=== PATIENT | female | born 1965 | race Caucasian/White ===

== ENCOUNTER 2017-04-27 13:54 | Emergency (ER) | payer OTHER ==
--- NOTE | 2017-04-27 14:24 | EDM.PDOC ---
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 There is a child that was climbing on a cabinet she went to get him down, the child head butted her nose, she is bruising on the nasal bridge No loss of consciousness O other injury described No fever nausea vomiting diarrhea constipation chest pain shortness breath headache dizziness palpitation about a urine symptoms ] Review of systems: As per history of present illness and below otherwise all systems reviewed and negative. Past medical history: As per history of present illness and as reviewed below otherwise noncontributory. Surgical history: As per history of present illness and as reviewed below otherwise noncontributory. Social history: No reported history of drug or alcohol abuse. Family history: As per history of present illness and as reviewed below otherwise noncontributory. Physical exam: HEENT: Atraumatic, normocephalic, pupils reactive, negative for conjunctival pallor or scleral icterus, mucous membranes moist, throat clear, neck supple, nontender, trachea midline. Bruising over the nasal bridge as well as raccoon 9 is likely developing Lungs: Clear to auscultation, breath sounds equal bilaterally, chest nontender. Heart: S1S2, regular, negative for clicks, rubs, or JVD. Abdomen: Soft, nondistended, nontender. Negative for masses or hepatosplenomegaly. Negative for costovertebral tenderness. Pelvis: Stable nontender. Genitourinary: Deferred. Rectal: Deferred. Extremities: Atraumatic, negative for cords or calf pain. Neurovascular unremarkable. Neuro: Awake, alert, oriented. Cranial nerves II through XII unremarkable. Cerebellum unremarkable. Motor and sensory unremarkable throughout. Exam nonfocal. Diagnostics: []Nasal bone plain films Therapeutics: []Rest ice ibuprofen Tylenol No. 3 one to 2 tab by mouth every 6 when necessary #30 no refill Follow-up with plastic surgery 7-10 days Impression: []Nondisplaced nasal fracture Definitive disposition and diagnosis as appropriate pending reevaluation and review of above. nose Pain Score (Numeric/FACES): 6 - Related Data Allergies Allergy/AdvReac Type Severity Reaction Status Date / Time meperidine HCl [From Demerol] Allergy Anaphylactic Verified 04/27/17 14:07 Shock Home Meds: Home Meds Tolterodine Tartrate [Detrol LA] 1 tab PO DAILY 10/09/15 [History] Diclofenac Sodium [Voltaren] 50 mg PO TIDMEALS #30 tab.ec 04/27/17 [Rx] Past Medical History HEENT History: Reports: Impaired Vision Other HEENT History: wears glasses Cardiovascular History: Reports: None Respiratory History: Reports: None Gastrointestinal History: Reports: None Genitourinary History: Reports: Renal Calculus, Urinary Incontinence Other Genitourinary History: has passed kidney stones [employer]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, Other OB/BYN History: hysterectomy Neurological History: Reports: None Psychiatric History: Reports: None Endocrine/Metabolic History: Reports: Obesity/BMI 30+ Hematologic History: Reports: None Oncologic (Cancer) History: Reports: None Dermatologic History: Reports: None - Past Surgical History Head Surgeries/Procedures: Reports: None Cardiovascular Surgical History: Reports: None Respiratory Surgical History: Reports: None GI Surgical History: Reports: Bariatric Procedure, Cholecystectomy, Other (See Below) Female Surgical History: Reports: Breast Biopsy, Section, D&C, Salpingo-Oophorectomy, Other (See Below) Endocrine Surgical History: Reports: None Neurological Surgical History: Reports: None Musculoskeletal Surgical History: Reports: Arthroscopic Knee Oncologic Surgical History: Reports: None Dermatological Surgical History: Reports: None Social & Family History - Family History Cardiac: Reports: CAD, Hypertension Endocrine/Metabolic: Reports: Diabetes, Type I - Tobacco Use Smoking Status *Q: Never Smoker Years of Tobacco use: 25 Used Tobacco, but Quit: Yes Second Hand Smoke Exposure: Yes - Caffeine Use Caffeine Use: Reports: Coffee, Soda - Alcohol Use Days Per Week of Alcohol Use: 0 Number of Drinks Per Day: 0 Total Drinks Per Week: 0 - Recreational Drug Use Recreational Drug Use: No Drug Use in Last 12 Months: No ED ROS GENERAL - Review of Systems Review Of Systems: ROS reveals no pertinent complaints other than HPI. ED EXAM, GENERAL - Physical Exam Exam: See Below Course - Vital Signs Last Recorded V/S: Last Vital Signs Temp 35.9 C 04/27/17 14:04 Pulse 74 04/27/17 14:04 Resp 18 04/27/17 14:04 BP 158/88 H 04/27/17 14:04 Pulse Ox 97 04/27/17 14:04 - Orders/Labs/Meds Orders: Active Orders 24 hr Category Date Time Status Ibuprofen [Motrin] Med 04/27/17 15:06 Once 800 mg PO ONETIME ONE Departure - Departure Time of Disposition: 15:06 Disposition: Home, Self-Care 01 Condition: Good Clinical Impression: Nasal fracture - Discharge Information Prescriptions: Diclofenac Sodium [Voltaren] 50 mg PO TIDMEALS #30 tab.ec Referrals: Toño Pérez MD [Primary Care Provider] - Forms: ED Department Discharge Additional Instructions: Rest Ice 20 minute intervals 3 times daily as needed Tylenol No. 3 one to 2 tabs by mouth every 6 when necessary #30 no refill Follow-up with plastic surgery in 7-10 days for reexamination and continued management [facility] - Plastic Surgery [address], [address] [place] [address] The following information is given to patients seen in the emergency department who are being discharged to home. This information is to outline your options for follow-up care. We provide all patients seen in our emergency department with a follow-up referral. The need for follow-up, as well as the timing and circumstances, are variable depending upon the specifics of your emergency department visit. If you don't have a primary care physician on staff, we will provide you with a referral. We always advise you to contact your personal physician following an emergency department visit to inform them of the circumstance of the visit and for follow-up with them and/or the need for any referrals to a consulting specialist. The emergency department will also refer you to a specialist when appropriate. This referral assures that you have the opportunity for follow-up care with a specialist. All of these measure are taken in an effort to provide you with optimal care, which includes your follow-up. Under all circumstances we always encourage you to contact your private physician who remains a resource for coordinating your care. When calling for follow-up care, please make the office aware that this follow-up is from your recent emergency room visit. If for any reason you are refused follow-up, please contact the [facility] emergency department at and asked to speak to the emergency department charge nurse. - My Orders Last 24 Hours: My Active Orders 04/27/17 15:06 Ibuprofen [Motrin] 800 mg PO ONETIME ONE - Assessment/Plan Last 24 Hours: My Active Orders 04/27/17 15:06 Ibuprofen [Motrin] 800 mg PO ONETIME ONE
--- NOTE | 2017-04-27 15:02 | CR ---
EXAMINATION: Nasal bones HISTORY: Pain COMPARISON: None TECHNIQUE: PA and lateral views FINDINGS/IMPRESSION: There is a nondisplaced horizontal fracture across the nasal bones bilaterally, however this appears chronic. Otherwise the osseous structures and bone mineralization appear normal. The maxillary sinuses are patent.
[2017-04-27] MEDS ORDERED: Ibuprofen 800 MG Tab PO ONE (15:06)
[2017-04-27 15:21] VITALS: BP 142/77
== END 2017-04-27 15:22 | disposition home or self-care (01) ==
LOC: MW.ED 13:54
DX: S02.2XXA Fracture of nasal bones, initial encounter for closed fracture (principal); Z88.8 Allergy status to other drugs, medicaments and biological substances; X58.XXXA Exposure to other specified factors, initial encounter
CPT/HCPCS: 70160; 70160-26; 99283; 99284

== ENCOUNTER 2017-09-21 01:39 | Emergency (ER) | payer OTHER ==
[2017-09-21] MEDS ORDERED: Sodium Chloride 0.9% 1,000 ML IV ONE (01:54)
[2017-09-21] MEDS ORDERED: Ketorolac 30 MG/ML SDV IVPUSH ONE (01:54)
[2017-09-21] MEDS ORDERED: Ondansetron 4 MG/2 ML SDV IVPUSH ONE (01:54)
--- NOTE | 2017-09-21 01:56 | EDM.PDOC ---
ED HPI GENERAL MEDICAL PROBLEM - General Chief Complaint: Back Pain or Injury Stated Complaint: KIDNEY STONES, BACK PAIN, CHILLS Time Seen by Provider: 09/21/17 01:55 Source of Information: Reports: Patient - History of Present Illness INITIAL COMMENTS - FREE TEXT/NARRATIVE: HISTORY AND PHYSICAL: History of present illness: [Patient presents to emergency room with right-sided abdominal pain radiating to the back she rates 6 out of 10 but does not display any pain behaviors pain began at 8 PM tonight she presents as such denies fever nausea vomiting chills sweats no chest pain shortness breath headache dizziness palpitation no bowel or urine symptoms With treatment below of Toradol pain over the period of about an hour decreased to 0-1 out of 10 Patient has a history of overactive bladder on Detrol otherwise denies chronic illness disease past surgeries include cholecystectomy and total abdominal hysterectomy ] Review of systems: As per history of present illness and below otherwise all systems reviewed and negative. Past medical history: As per history of present illness and as reviewed below otherwise noncontributory. Surgical history: As per history of present illness and as reviewed below otherwise noncontributory. Social history: No reported history of drug or alcohol abuse. Family history: As per history of present illness and as reviewed below otherwise noncontributory. Physical exam: HEENT: Atraumatic, normocephalic, pupils reactive, negative for conjunctival pallor or scleral icterus, mucous membranes moist, throat clear, neck supple, nontender, trachea midline. Lungs: Clear to auscultation, breath sounds equal bilaterally, chest nontender. Heart: S1S2, regular, negative for clicks, rubs, or JVD. Abdomen: Soft, nondistended, nontender. Negative for masses or hepatosplenomegaly. Negative for costovertebral tenderness. Pelvis: Stable nontender. Genitourinary: Deferred. Rectal: Deferred. Extremities: Atraumatic, negative for cords or calf pain. Neurovascular unremarkable. Neuro: Awake, alert, oriented. Cranial nerves II through XII unremarkable. Cerebellum unremarkable. Motor and sensory unremarkable throughout. Exam nonfocal. Diagnostics: [CBC CMP UA troponin lipase Blood cultures urine culture ] CT abdomen pelvis with and without contrast Therapeutics: [ liter normal saline bolus Zofran 8 mg IV Toradol 30 mg IV Solu-Medrol 125 mg IV Flomax 0.4 mg by mouth] Levaquin 750 mg IV Filter in screening equipment Patient discussed with Dr. Patel urology provisioning specialist at [facility], discussed due to the positive nitrites and 1+ bacteria on UA, 0-3 white blood cells which does not correlate with UTI patient denies any urine symptoms and pain is resolved she has remained afebrile and hemodynamically stable .his recommendation is to 10 units with the antibiotics and have her follow-up through his clinic she can call tomorrow to redirect this plan is based on the firm understanding that the patient will return to ER if fever or temperature over 100.4 should develop . Check of stress to the patient Levaquin 500 mg by mouth daily #10 no refill Flomax 0.4 by mouth daily #6 no refill Zofran Hydrocodone filter equipment provided for urine screening to catch stone and return for pathology Patient is offered observation admission and declined/refused Impression: [ 4 mm right ureteral stone nitrite positive, 1+ bacteria, 0-3 white blood cells patient afebrile and hemodynamically stable ] Definitive disposition and diagnosis as appropriate pending reevaluation and review of above. low back Pain Score (Numeric/FACES): 7 - Related Data Allergies Allergy/AdvReac Type Severity Reaction Status Date / Time meperidine HCl [From Demerol] Allergy Anaphylactic Verified 09/21/17 01:53 Shock Home Meds: Home Meds Tolterodine Tartrate [Detrol LA] 1 tab PO DAILY 10/09/15 [History] Past Medical History HEENT History: Reports: Impaired Vision Other HEENT History: wears glasses Cardiovascular History: Reports: None Respiratory History: Reports: None Gastrointestinal History: Reports: None Genitourinary History: Reports: Renal Calculus, Urinary Incontinence Other Genitourinary History: has passed kidney stones 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, Other OB/BYN History: hysterectomy Neurological History: Reports: None Psychiatric History: Reports: None Endocrine/Metabolic History: Reports: Obesity/BMI 30+ Hematologic History: Reports: None Oncologic (Cancer) History: Reports: None Dermatologic History: Reports: None - Past Surgical History Head Surgeries/Procedures: Reports: None Cardiovascular Surgical History: Reports: None Respiratory Surgical History: Reports: None GI Surgical History: Reports: Bariatric Procedure, Cholecystectomy, Other (See Below) Female Surgical History: Reports: Breast Biopsy, Section, D&C, Salpingo-Oophorectomy, Other (See Below) Endocrine Surgical History: Reports: None Neurological Surgical History: Reports: None Musculoskeletal Surgical History: Reports: Arthroscopic Knee Oncologic Surgical History: Reports: None Dermatological Surgical History: Reports: None Social & Family History - Family History Cardiac: Reports: CAD, Hypertension Endocrine/Metabolic: Reports: Diabetes, Type I - Tobacco Use Smoking Status *Q: Never Smoker Years of Tobacco use: 25 Used Tobacco, but Quit: Yes Second Hand Smoke Exposure: Yes - Caffeine Use Caffeine Use: Reports: Coffee, Soda - Alcohol Use Days Per Week of Alcohol Use: 0 Number of Drinks Per Day: 0 Total Drinks Per Week: 0 - Recreational Drug Use Recreational Drug Use: No Drug Use in Last 12 Months: No ED ROS GENERAL - Review of Systems Review Of Systems: ROS reveals no pertinent complaints other than HPI. ED EXAM, GENERAL - Physical Exam Exam: See Below Course - Vital Signs Last Recorded V/S: Last Vital Signs Temp 98 F 09/21/17 03:12 Pulse 60 09/21/17 03:12 Resp 18 09/21/17 03:12 BP 117/59 L 09/21/17 03:12 Pulse Ox 96 09/21/17 03:12 - Orders/Labs/Meds Orders: Active Orders 24 hr Category Date Time Status Abdomen Pelvis w wo Cont [CT] Stat Exams 09/21/17 02:11 Taken CULTURE BLOOD [BC] Stat Lab 09/21/17 02:04 Received CULTURE BLOOD [BC] Stat Lab 09/21/17 02:15 Received CULTURE URINE [RM] Stat Lab 09/21/17 01:55 Ordered UA W/MICROSCOPIC [URIN] Stat Lab 09/21/17 01:55 Ordered Levofloxacin/Dextrose 5%-Water [Levaquin in D5W 750 MG/ Med 09/21/17 03:22 Ordered 150 ML] 750 mg Premix Bag 1 bag IV ONETIME Sodium Chloride 0.9% [Normal Saline] 1,000 ml Med 09/21/17 03:30 Ordered IV STAT Blood Culture x2 Reflex Set [OM.PC] Stat Oth 09/21/17 01:54 Ordered Medication Orders Sodium Chloride (Normal Saline) 1,000 mls @ 125 mls/hr IV STAT SENTHIL Last Admin: 09/21/17 03:29 Dose: 125 mls/hr Levofloxacin/Dextrose 750 mg/ (Premix) 150 mls @ 100 mls/hr IV ONETIME ONE Stop: 09/21/17 04:51 Last Admin: 09/21/17 03:33 Dose: 100 mls/hr Labs: Laboratory Tests 09/21/17 09/21/17 09/21/17 Range/Units 01:55 02:04 02:04 WBC 8.70 (4.0-11.0) K/uL RBC 5.00 (4.30-5.90) M/uL Hgb 13.5 (12.0-16.0) g/dL Hct 40.7 (36.0-46.0) % MCV 81.4 (80.0-98.0) fL MCH 27.0 (27.0-32.0) pg MCHC 33.2 (31.0-37.0) g/dL RDW Std Deviation 46.0 (28.0-62.0) fl RDW Coeff of Akin 16 H (11.0-15.0) % Plt Count 230 (150-400) K/uL MPV 9.60 (7.40-12.00) fL Neut % (Auto) 66.6 (48.0-80.0) % Lymph % (Auto) 23.2 (16.0-40.0) % Stevens % (Auto) 8.5 (0.0-15.0) % Eos % (Auto) 1.5 (0.0-7.0) % Baso % (Auto) 0.2 (0.0-1.5) % Neut # (Auto) 5.8 H (1.4-5.7) K/uL Lymph # (Auto) 2.0 (0.6-2.4) K/uL Stevens # (Auto) 0.7 (0.0-0.8) K/uL Eos # (Auto) 0.1 (0.0-0.7) K/uL Baso # (Auto) 0.0 (0.0-0.1) K/uL Nucleated RBC % 0.0 /100WBC Nucleated RBCs # 0 K/uL Sodium 141 (136-145) mmol/L Potassium 4.4 (3.5-5.1) mmol/L Chloride 105 (98-107) mmol/L Carbon Dioxide 26.7 (21.0-32.0) mmol/L BUN 24 H (7.0-18.0) mg/dL Creatinine 0.8 (0.6-1.0) mg/dL Est Cr Clr Drug Dosing 72.34 mL/min Estimated GFR (MDRD) > 60.0 ml/min Glucose 121 H (74-106) mg/dL Calcium 9.2 (8.5-10.1) mg/dL Total Bilirubin 0.2 (0.2-1.0) mg/dL AST 14 L (15-37) IU/L ALT 22 (14-63) IU/L Alkaline Phosphatase 104 (46-116) U/L Troponin I < 0.050 (0.000-0.056) ng/mL Total Protein 7.3 (6.4-8.2) g/dL Albumin 3.9 (3.4-5.0) g/dL Globulin 3.4 (2.0-3.5) g/dL Albumin/Globulin Ratio 1.1 L (1.3-2.8) Lipase 190 (73-393) U/L Urine Color YELLOW Urine Appearance CLEAR Urine pH 5.0 (5.0-8.0) Ur Specific [place] 1.020 (1.001-1.035) Urine Protein NEGATIVE (NEGATIVE) mg/dL Urine Glucose (UA) NEGATIVE (NEGATIVE) mg/dL Urine Ketones NEGATIVE (NEGATIVE) mg/dL Urine Occult Blood LARGE H (NEGATIVE) Urine Nitrite POSITIVE H (NEGATIVE) Urine Bilirubin NEGATIVE (NEGATIVE) Urine Urobilinogen 0.2 (<2.0) EU/dL Ur Leukocyte Esterase NEGATIVE (NEGATIVE) Urine RBC 27-29 (0-2/HPF) Urine WBC 0-3 (0-5/HPF) Ur Epithelial Cells OCCASIONAL (NONE-FEW) Amorphous Sediment LIGHT (NEGATIVE) Urine Bacteria 1+ H (NEGATIVE) Urine Mucus LIGHT (NONE-MOD) Meds: Medications Generic Name Dose Route Start Last Admin Trade Name Freq PRN Reason Stop Dose Admin Sodium Chloride 1,000 mls @ 125 mls/hr 09/21/17 03:30 09/21/17 03:29 Normal Saline IV 125 mls/hr STAT SENTHIL Administration Levofloxacin/Dextrose 750 mg/ 150 mls @ 100 mls/hr 09/21/17 03:22 09/21/17 03 :33 Premix IV 09/21/17 04:51 100 mls/hr ONETIME ONE Administration Discontinued Medications Generic Name Dose Route Start Last Admin Trade Name Driss PRN Reason Stop Dose Admin Sodium Chloride 1,000 mls @ 999 mls/hr 09/21/17 01:54 09/21/17 02:05 Normal Saline IV 09/21/17 02:54 999 mls/hr STAT ONE Administration Iopamidol 100 ml 09/21/17 02:53 09/21/17 02:54 Isovue-370 (76%) IVPUSH 09/21/17 02:54 100 ml ONETIME STA Administration Ketorolac Tromethamine 30 mg 09/21/17 01:54 09/21/17 02:10 Toradol IVPUSH 09/21/17 01:55 30 mg ONETIME ONE Administration Methylprednisolone Sodium Succinate 125 mg 09/21/17 03:21 09/21/17 03:30 Solu-Medrol IVPUSH 09/21/17 03:22 125 mg ONETIME ONE Administration Ondansetron HCl 8 mg 09/21/17 01:54 09/21/17 02:09 Zofran IVPUSH 09/21/17 01:55 8 mg ONETIME ONE Administration Tamsulosin HCl 0.4 mg 09/21/17 03:20 09/21/17 03:30 Flomax PO 09/21/17 03:21 0.4 mg ONETIME ONE Administration Departure - Departure Time of Disposition: 04:09 Disposition: Home, Self-Care 01 Condition: Good Clinical Impression: Ureteral stone - Discharge Information Referrals: Toño Pérez MD [Primary Care Provider] - Forms: ED Department Discharge Additional Instructions: Medication as prescribed Return if symptoms persist or worsen or new concerning symptoms develop such as fever nausea vomiting chills sweats temperature over 100.4 with prompt immediate return to emergency room Filter screen and collection equipment to retrieve stone for pathology and culture Have discussed your case with Dr. Oconnor, urologist provisioning specialist at [facility], he would like to hear from you tomorrow to set up further treatment plan for you after updates i.e. whether stone passes or not. Again fever or temperature over 100.4 with always prompt you to return to the emergency room Currently urine cultures and blood cultures are pending Dr. Suarez office can be contacted to [facility] in mind that at which is the switchboard operators number asked to be transferred to his clinic in the urology department. The following information is given to patients seen in the emergency department who are being discharged to home. This information is to outline your options for follow-up care. We provide all patients seen in our emergency department with a follow-up referral. The need for follow-up, as well as the timing and circumstances, are variable depending upon the specifics of your emergency department visit. If you don't have a primary care physician on staff, we will provide you with a referral. We always advise you to contact your personal physician following an emergency department visit to inform them of the circumstance of the visit and for follow-up with them and/or the need for any referrals to a consulting specialist. The emergency department will also refer you to a specialist when appropriate. This referral assures that you have the opportunity for follow-up care with a specialist. All of these measure are taken in an effort to provide you with optimal care, which includes your follow-up. Under all circumstances we always encourage you to contact your private physician who remains a resource for coordinating your care. When calling for follow-up care, please make the office aware that this follow-up is from your recent emergency room visit. If for any reason you are refused follow-up, please contact the [facility] emergency department at and asked to speak to the emergency department charge nurse. - My Orders Last 24 Hours: My Active Orders 09/21/17 01:54 Blood Culture x2 Reflex Set [OM.PC] Stat 09/21/17 01:55 CULTURE URINE [RM] Stat UA W/MICROSCOPIC [URIN] Stat 09/21/17 02:04 CULTURE BLOOD [BC] Stat 09/21/17 02:11 Abdomen Pelvis w wo Cont [CT] Stat 09/21/17 02:15 CULTURE BLOOD [BC] Stat 09/21/17 03:22 Levofloxacin/Dextrose 5%-Water [Levaquin in D5W 750 MG/150 ML] 750 mg Premix Bag 1 bag IV ONETIME 09/21/17 03:30 Sodium Chloride 0.9% [Normal Saline] 1,000 ml IV STAT - Assessment/Plan Last 24 Hours: My Active Orders 09/21/17 01:54 Blood Culture x2 Reflex Set [OM.PC] Stat 09/21/17 01:55 CULTURE URINE [RM] Stat UA W/MICROSCOPIC [URIN] Stat 09/21/17 02:04 CULTURE BLOOD [BC] Stat 09/21/17 02:11 Abdomen Pelvis w wo Cont [CT] Stat 09/21/17 02:15 CULTURE BLOOD [BC] Stat 09/21/17 03:22 Levofloxacin/Dextrose 5%-Water [Levaquin in D5W 750 MG/150 ML] 750 mg Premix Bag 1 bag IV ONETIME 09/21/17 03:30 Sodium Chloride 0.9% [Normal Saline] 1,000 ml IV STAT
[2017-09-21 02:47] LABS: CHLORIDE,CL 105 mmol/L (98-107); SODIUM,NA 141 mmol/L (136-145)
[2017-09-21] MEDS ORDERED: Iopamidol 755 Mg/ML 100 ML Bottle IVPUSH STA (02:53)
[2017-09-21] MEDS ORDERED: Tamsulosin 0.4 MG Cap.ER PO ONE (03:20)
[2017-09-21] MEDS ORDERED: methylPREDNISolone Sodium Succinate 125 MG/2 ML SDV IVPUSH ONE (03:21)
[2017-09-21] MEDS ORDERED: Levofloxacin/Dextrose 5%-Water 750 MG in Premix Bag 1 BAG IV ONE (03:22)
[2017-09-21] MEDS ORDERED: Sodium Chloride 0.9% 1,000 ML IV SCH (03:30)
[2017-09-21 05:33] VITALS: BP 120/75
--- NOTE | 2017-09-21 11:26 | CT ---
EXAM DATE: 09/21/17 PATIENT'S AGE: 52 Patient: ANNIE SAUNDERS Facility: [facility] [place], [place] Site . Site : [id number] Study: CT Abdomen/Pelvis W/ and W/O Cont [id number]/[id number] 2:57:51 AM Ordering Physician: Michelle Phelps Final Report: INDICATION: RLQ pain TECHNIQUE: CT abdomen and pelvis acquired without and with IV contrast. COMPARISON: None FINDINGS: Lower chest: Unremarkable. Liver: 2.8 x 2.9 cm macroscopic fat containing lesion within the left hepatic lobe consistent with a hepatic angiomyolipoma. Additional innumerable ill- defined lesions throughout the liver with puddling of contrast along the periphery which fill and on the delayed sequences. Hepatomegaly. Spleen: Nonspecific splenomegaly measuring up to 14 cm. Pancreas: Unremarkable. Gallbladder and bile ducts: Cholecystectomy Kidneys: 4 mm calculus within the mid right ureter with associated right-sided hydroureter/hydronephrosis. Additional bilateral nonobstructive intrarenal calculi. Adrenal glands: Unremarkable. GI tract: Gastric bypass changes. Appendix is normal. Vascular structures: Negative. No sign of aneurysm. Lymph nodes: Unremarkable. Miscellaneous: Fat containing ventral abdominal wall hernia. No free air or significant free fluid. Pelvic Organs: Hysterectomy Bones: Degenerative changes. IMPRESSION: 1. 4 mm calculus within the mid right ureter with associated right-sided hydroureter/hydronephrosis. Additional bilateral nonobstructive intrarenal calculi. 2. Multiple hepatic lesions with characteristics of hemangiomas. Additional angiomyolipoma. 3. Fat containing ventral abdominal wall hernia. 4. Nonspecific hepatosplenomegaly. Dictated by Otf Benito MD @ 09/21/2017 3:11:44 AM Please note that all CT scans at this facility use dose modulation, iterative reconstruction, and/or weight-based dosing when appropriate to reduce radiation dose to as low as reasonably achievable. Dictated by: Otf Benito MD @ 09/21/2017 03:11:58 (Electronic Signature) Report Signed by Proxy. [facility]
== END 2017-09-21 05:30 | disposition home or self-care (01) ==
LOC: MW.ED 01:39
DX: N13.2 Hydronephrosis with renal and ureteral calculous obstruction (principal); Z88.5 Allergy status to narcotic agent; Z79.899 Other long term (current) drug therapy; Z87.891 Personal history of nicotine dependence
CPT/HCPCS: 36415; 74178; 80053; 81001; 83690; 84484; 85025; 87040; 87086; 96361; 96365; 96366; 96375; 99284; A9270; J1885; J1956; J2405; J2930; J7040; Q9967; 87088; 87186

== ENCOUNTER 2019-02-08 06:58 | Emergency (ER) | payer OTHER ==
[2019-02-08] MEDS ORDERED: Sodium Chloride 0.9% 1,000 ML IV ONE (07:25)
[2019-02-08] MEDS ORDERED: Ketorolac 30 MG/ML SDV IVPUSH ONE (07:25)
--- NOTE | 2019-02-08 07:28 | EDM.PDOC ---
ED HPI GENERAL MEDICAL PROBLEM - General Chief Complaint: General Stated Complaint: ABDOMINAL PAIN Time Seen by Provider: 02/08/19 07:15 - History of Present Illness INITIAL COMMENTS - FREE TEXT/NARRATIVE: HISTORY AND PHYSICAL: History of present illness: Patient is 53-year-old white female who presents with a concern of right-sided flank/abdominal pain fever generalized weakness with history of urolithiasis states she's had a temperature 102 at home denies nausea vomiting has had prior cholecystectomy hysterectomy. Review of systems: As per history of present illness and below otherwise all systems reviewed and negative. Past medical history: As per history of present illness and as reviewed below otherwise noncontributory. Surgical history: As per history of present illness and as reviewed below otherwise noncontributory. Social history: No reported history of drug or alcohol abuse. Family history: As per history of present illness and as reviewed below otherwise noncontributory. Physical exam: HEENT: Atraumatic, normocephalic, pupils reactive, negative for conjunctival pallor or scleral icterus, mucous membranes dry, throat clear, neck supple, nontender, trachea midline. Lungs: Clear to auscultation, breath sounds equal bilaterally, chest nontender. Heart: S1S2, regular, negative for clicks, rubs, or JVD. Abdomen: Soft, nondistended, right-sided nonlocalized no rebound no guarding. Negative for masses or hepatosplenomegaly. Mild right-sided costovertebral tenderness. Pelvis: Stable nontender. Genitourinary: Deferred. Rectal: Deferred. Extremities: Atraumatic, negative for cords or calf pain. Neurovascular unremarkable. Neuro: Awake, alert, oriented. Cranial nerves II through XII unremarkable. Cerebellum unremarkable. Motor and sensory unremarkable throughout. Exam nonfocal. Diagnostics: CBC CMP blood culture [address] abdomen and pelvis chest x-ray UA Therapeutics: Saline 1 L bolus Toradol 30 mg IV Impression: #1 right sided flank/abdominal pain #2 history of fever #3 medical screening exam Definitive disposition and diagnosis as appropriate pending reevaluation and review of above. Headache Pain Score (Numeric/FACES): 7 Lower Back Pain Score (Numeric/FACES): 6 - Related Data Allergies Allergy/AdvReac Type Severity Reaction Status Date / Time meperidine HCl [From Demerol] Allergy Anaphylactic Verified 02/08/19 07:07 Shock Home Meds: Home Meds Tolterodine Tartrate [Detrol LA] 1 tab PO DAILY 10/09/15 [History] Past Medical History HEENT History: Reports: Impaired Vision Other HEENT History: wears glasses Cardiovascular History: Reports: None Respiratory History: Reports: None Gastrointestinal History: Reports: None Genitourinary History: Reports: Renal Calculus, Urinary Incontinence Other Genitourinary History: has passed kidney stones 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: Reports: 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, Other 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: hysterectomy Neurological History: Reports: None Psychiatric History: Reports: None Endocrine/Metabolic History: Reports: Obesity/BMI 30+ Hematologic History: Reports: None Oncologic (Cancer) History: Reports: None Dermatologic History: Reports: None - Past Surgical History Head Surgeries/Procedures: Reports: None Cardiovascular Surgical History: Reports: None Respiratory Surgical History: Reports: None GI Surgical History: Reports: Bariatric Procedure, Cholecystectomy, Other (See Below) Female Surgical History: Reports: Breast Biopsy, Section, D&C, Hysterectomy, Salpingo-Oophorectomy, Other (See Below) Endocrine Surgical History: Reports: None Neurological Surgical History: Reports: None Musculoskeletal Surgical History: Reports: Arthroscopic Knee Oncologic Surgical History: Reports: None Dermatological Surgical History: Reports: None Social & Family History - Family History Family Medical History: Noncontributory Cardiac: Reports: CAD, Hypertension Endocrine/Metabolic: Reports: Diabetes, Type I - Tobacco Use Smoking Status *Q: Never Smoker - Caffeine Use Caffeine Use: Reports: Coffee, Soda - Recreational Drug Use Recreational Drug Use: No ED ROS GENERAL - Review of Systems Review Of Systems: ROS reveals no pertinent complaints other than HPI. ED EXAM, GENERAL - Physical Exam Exam: See Below (See dictation) Course - Vital Signs Text/Narrative:: I discussed case with urology Dr. Hayes including CT results UA. Patient was given Rocephin 1 g IV she did receive Toradol, Dilaudid and Zofran in the emergency room. I discussed with patient plan as per urology for follow-up in the office today at 1 PM to schedule definitive treatment patient agrees and understands I discussed concerns with regard to clinical statement including obstructive uropathy with urinary tract infection and associated risks patient understands and will return immediately for persistent or worsening pain nausea vomiting fever chills or any other complaints as discussed as well as agrees to the close follow-up and planning as per urology. Last Recorded V/S: Last Vital Signs Temp 36.2 C 02/08/19 07:05 Pulse 97 02/08/19 07:05 Resp 18 02/08/19 07:05 BP 134/84 02/08/19 07:05 Pulse Ox 96 02/08/19 07:05 - Orders/Labs/Meds Orders: Active Orders 24 hr Category Date Time Status CULTURE BLOOD [BC] Stat Lab 02/08/19 07:34 Received CULTURE BLOOD [BC] Stat Lab 02/08/19 07:44 Received CULTURE URINE [RM] Stat Lab 02/08/19 08:18 Received cefTRIAXone [Rocephin] 1 gm Med 02/08/19 09:12 Active Sodium Chloride 0.9% [Normal Saline] 50 ml IV ONETIME Blood Culture x2 Reflex Set [OM.PC] Stat Oth 02/08/19 07:25 Ordered Medication Orders Ceftriaxone Sodium 1 gm/ (Sodium Chloride) 50 mls @ 100 mls/hr IV ONETIME ONE Stop: 02/08/19 09:41 Labs: Laboratory Tests 02/08/19 02/08/19 02/08/19 Range/Units 07:34 07:34 07:34 WBC 5.45 (4.0-11.0) K/uL RBC 4.73 (4.30-5.90) M/uL Hgb 12.8 (12.0-16.0) g/dL Hct 39.4 (36.0-46.0) % MCV 83.3 (80.0-98.0) fL MCH 27.1 (27.0-32.0) pg MCHC 32.5 (31.0-37.0) g/dL RDW Std Deviation 43.1 (28.0-62.0) fl RDW Coeff of Akin 14 (11.0-15.0) % Plt Count 170 (150-400) K/uL MPV 9.50 (7.40-12.00) fL Neut % (Auto) 71.6 (48.0-80.0) % Lymph % (Auto) 19.4 (16.0-40.0) % [place]oul[place] % (Auto) 8.6 (0.0-15.0) % Eos % (Auto) 0.2 (0.0-7.0) % Baso % (Auto) 0.2 (0.0-1.5) % Neut # (Auto) 3.9 (1.4-5.7) K/uL Lymph # (Auto) 1.1 (0.6-2.4) K/uL [place] # (Auto) 0.5 (0.0-0.8) K/uL Eos # (Auto) 0.0 (0.0-0.7) K/uL Baso # (Auto) 0.0 (0.0-0.1) K/uL Nucleated RBC % 0.0 /100WBC Nucleated RBCs # 0 K/uL INR 1.01 Sodium 139 (136-145) mmol/L Potassium 4.1 (3.5-5.1) mmol/L Chloride 104 (98-107) mmol/L Carbon Dioxide 25.3 (21.0-32.0) mmol/L BUN 11 (7.0-18.0) mg/dL Creatinine 0.8 (0.6-1.0) mg/dL Est Cr Clr Drug Dosing TNP Estimated GFR (MDRD) > 60.0 ml/min Glucose 112 H (74-106) mg/dL Calcium 9.1 (8.5-10.1) mg/dL Total Bilirubin 0.5 (0.2-1.0) mg/dL AST 12 L (15-37) IU/L ALT 18 (14-63) IU/L Alkaline Phosphatase 110 (46-116) U/L Total Protein 6.5 (6.4-8.2) g/dL Albumin 3.4 (3.4-5.0) g/dL Globulin 3.1 (2.6-4.0) g/dL Albumin/Globulin Ratio 1.1 (0.9-1.6) Lipase 121 (73-393) U/L Urine Color Urine Appearance Urine pH (5.0-8.0) Ur Specific Freedom (1.001-1.035) Urine Protein (NEGATIVE) mg/dL Urine Glucose (UA) (NEGATIVE) mg/dL Urine Ketones (NEGATIVE) mg/dL Urine Occult Blood (NEGATIVE) Urine Nitrite (NEGATIVE) Urine Bilirubin (NEGATIVE) Urine Urobilinogen (<2.0) EU/dL Ur Leukocyte Esterase (NEGATIVE) Urine RBC (0-2/HPF) Urine WBC (0-5/HPF) Ur Epithelial Cells (NONE-FEW) Urine Bacteria (NEGATIVE) 02/08/19 Range/Units 08:18 WBC (4.0-11.0) K/uL RBC (4.30-5.90) M/uL Hgb (12.0-16.0) g/dL Hct (36.0-46.0) % MCV (80.0-98.0) fL MCH (27.0-32.0) pg MCHC (31.0-37.0) g/dL RDW Std Deviation (28.0-62.0) fl RDW Coeff of Akin (11.0-15.0) % Plt Count (150-400) K/uL MPV (7.40-12.00) fL Neut % (Auto) (48.0-80.0) % Lymph % (Auto) (16.0-40.0) % [place]oul[place] % (Auto) (0.0-15.0) % Eos % (Auto) (0.0-7.0) % Baso % (Auto) (0.0-1.5) % Neut # (Auto) (1.4-5.7) K/uL Lymph # (Auto) (0.6-2.4) K/uL [place] # (Auto) (0.0-0.8) K/uL Eos # (Auto) (0.0-0.7) K/uL Baso # (Auto) (0.0-0.1) K/uL Nucleated RBC % /100WBC Nucleated RBCs # K/uL INR Sodium (136-145) mmol/L Potassium (3.5-5.1) mmol/L Chloride (98-107) mmol/L Carbon Dioxide (21.0-32.0) mmol/L BUN (7.0-18.0) mg/dL Creatinine (0.6-1.0) mg/dL Est Cr Clr Drug Dosing Estimated GFR (MDRD) ml/min Glucose (74-106) mg/dL Calcium (8.5-10.1) mg/dL Total Bilirubin (0.2-1.0) mg/dL AST (15-37) IU/L ALT (14-63) IU/L Alkaline Phosphatase (46-116) U/L Total Protein (6.4-8.2) g/dL Albumin (3.4-5.0) g/dL Globulin (2.6-4.0) g/dL Albumin/Globulin Ratio (0.9-1.6) Lipase (73-393) U/L Urine Color YELLOW Urine Appearance CLEAR Urine pH 6.0 (5.0-8.0) Ur Specific Freedom 1.020 (1.001-1.035) Urine Protein NEGATIVE (NEGATIVE) mg/dL Urine Glucose (UA) NEGATIVE (NEGATIVE) mg/dL Urine Ketones NEGATIVE (NEGATIVE) mg/dL Urine Occult Blood SMALL H (NEGATIVE) Urine Nitrite NEGATIVE (NEGATIVE) Urine Bilirubin NEGATIVE (NEGATIVE) Urine Urobilinogen 0.2 (<2.0) EU/dL Ur Leukocyte Esterase SMALL H (NEGATIVE) Urine RBC 3-5 (0-2/HPF) Urine WBC 10-15 (0-5/HPF) Ur Epithelial Cells OCCASIONAL (NONE-FEW) Urine Bacteria 2+ H (NEGATIVE) Meds: Medications Generic Name Dose Route Start Last Admin Trade Name Freq PRN Reason Stop Dose Admin Ceftriaxone Sodium 1 gm/ 50 mls @ 100 mls/hr 02/08/19 09:12 Sodium Chloride IV 02/08/19 09:41 ONETIME ONE Discontinued Medications Generic Name Dose Route Start Last Admin Trade Name Freq PRN Reason Stop Dose Admin Hydromorphone HCl 1 mg 02/08/19 09:13 Dilaudid IVPUSH 02/08/19 09:14 ONETIME ONE Sodium Chloride 1,000 mls @ 999 mls/hr 02/08/19 07:25 02/08/19 07:36 Normal Saline IV 02/08/19 08:25 999 mls/hr STAT ONE Administration Ketorolac Tromethamine 30 mg 02/08/19 07:25 02/08/19 07:36 Toradol IVPUSH 02/08/19 07:26 30 mg ONETIME ONE Administration Departure - Departure Time of Disposition: 09:17 Disposition: Home, Self-Care 01 Condition: Good Clinical Impression: Urolithiasis, UTI (urinary tract infection) - Discharge Information Referrals: Toño Pérez MD [Primary Care Provider] - Forms: ED Department Discharge Additional Instructions: The following information is given to patients seen in the emergency department who are being discharged to home. This information is to outline your options for follow-up care. We provide all patients seen in our emergency department with a follow-up referral. The need for follow-up, as well as the timing and circumstances, are variable depending upon the specifics of your emergency department visit. If you don't have a primary care physician on staff, we will provide you with a referral. We always advise you to contact your personal physician following an emergency department visit to inform them of the circumstance of the visit and for follow-up with them and/or the need for any referrals to a consulting specialist. The emergency department will also refer you to a specialist when appropriate. This referral assures that you have the opportunity for followup care with a specialist. All of these measure are taken in an effort to provide you with optimal care, which includes your followup. Under all circumstances we always encourage you to contact your private physician who remains a resource for coordinating your care. When calling for followup care, please make the office aware that this follow-up is from your recent emergency room visit. If for any reason you are refused follow-up, please contact the [facility] emergency department at and asked to speak to the emergency department charge nurse. [facility] - Urology [address] [place] [address] Hydrocodone as prescribed Flomax as prescribed follow-up urology today at 1:00 as discussed return as needed as discussed - My Orders Last 24 Hours: My Active Orders 02/08/19 07:25 Blood Culture x2 Reflex Set [OM.PC] Stat 02/08/19 07:34 CULTURE BLOOD [BC] Stat 02/08/19 07:44 CULTURE BLOOD [BC] Stat 02/08/19 08:18 CULTURE URINE [RM] Stat 02/08/19 09:12 cefTRIAXone [Rocephin] 1 gm Sodium Chloride 0.9% [Normal Saline] 50 ml IV ONETIME - Assessment/Plan Last 24 Hours: My Active Orders 02/08/19 07:25 Blood Culture x2 Reflex Set [OM.PC] Stat 02/08/19 07:34 CULTURE BLOOD [BC] Stat 02/08/19 07:44 CULTURE BLOOD [BC] Stat 02/08/19 08:18 CULTURE URINE [RM] Stat 02/08/19 09:12 cefTRIAXone [Rocephin] 1 gm Sodium Chloride 0.9% [Normal Saline] 50 ml IV ONETIME
[2019-02-08 08:19] LABS: CHLORIDE,CL 104 mmol/L (98-107); SODIUM,NA 139 mmol/L (136-145)
--- NOTE | 2019-02-08 08:21 | CR ---
INDICATION: Pain, SOB and fever TECHNIQUE: AP image of the chest. COMPARISON: Today`s abdomen/pelvis CT. FINDINGS: Lungs and pleural spaces clear. Heart, mediastinum and pulmonary vessels normal. No significant osseous abnormality. IMPRESSION: Negative chest. Dictated by Jarrod Haynes MD @ Feb 08 2019 8:17AM Signed by Dr. Jarrod Haynes @ Feb 08 2019 8:19AM
--- NOTE | 2019-02-08 08:34 | CT ---
INDICATION: Low back pain with right-sided stomach pain and fever. History of stones. TECHNIQUE: Volumetric helical scanning of the abdomen and pelvis was performed without contrast material. Coronal and sagittal reconstructions were obtained. COMPARISON: Abdomen/pelvis CT of 09/21/2017. FINDINGS: A mildly obstructing 10 x 9 x 5 mm stone is demonstrated at the right ureteropelvic junction. Mild right hydronephrosis and perinephric stranding is demonstrated. This stone has attenuation of 960 HU. A 1-2 mm stone is present in the lower right collecting system. A 4 mm stone is present in the lower left collecting system as well as a 2-3 mm stone in the upper left collecting system. The kidneys are otherwise unremarkable. The bladder is grossly negative. Postop changes of total abdominal hysterectomy are again demonstrated. No free fluid is evident. The liver is normal in size and shape. At the junction of liver segments 2 and 4A, an unchanged 3.1 x 2.6 x 2.3 cm angiomyolipoma is demonstrated. Spanning liver segments 4A and 4B is unchanged hemangioma measuring 7.0 x 5.8 x 5.3 cm and in the periphery of segment 8 is an unchanged 2.9 x 2.2 x 2.1 cm hemangioma. Post op changes of cholecystectomy are again demonstrated. No bile duct dilation is evident. The spleen is within normal limits. The adrenal glands are unremarkable. The pancreas is within normal limits. No lymphadenopathy is evident. Postop changes of gastric bypass are again noted. The bowel is otherwise unremarkable except for a small hiatal hernia. The lung bases are clear. The heart is normal in size. IMPRESSION: 1. Mildly obstructing 10 x 9 x 5 mm right UPJ stone. 2. Small renal collecting system stones bilaterally, as above. 3. Post gastric bypass, cholecystectomy and total abdominal hysterectomy. 4. Unchanged hepatic hemangiomas and angiomyolipoma, as above. 5. Small hiatal hernia. Please note that all CT scans at this facility use dose modulation, iterative reconstruction, and/or weight-based dosing when appropriate to reduce radiation dose to as low as reasonably achievable. Dictated by Jarrod Haynes MD @ Feb 08 2019 8:19AM Signed by Dr. Jarrod Haynes @ Feb 08 2019 8:33AM
[2019-02-08] MEDS ORDERED: cefTRIAXone 1 GM in Sodium Chloride 0.9% 50 ML IV ONE (09:12)
[2019-02-08] MEDS ORDERED: HYDROmorphone 1 MG/ML Syringe IVPUSH ONE (09:13)
[2019-02-08 10:17] VITALS: BP 113/55
== END 2019-02-08 10:01 | disposition home or self-care (01) ==
LOC: MW.ED 06:58
DX: N13.2 Hydronephrosis with renal and ureteral calculous obstruction (principal); N39.0 Urinary tract infection, site not specified; E66.9 Obesity, unspecified; Z90.49 Acquired absence of other specified parts of digestive tract; Z90.710 Acquired absence of both cervix and uterus; Z88.8 Allergy status to other drugs, medicaments and biological substances; Z98.84 Bariatric surgery status
CPT/HCPCS: 36415; 71045; 74176; 80053; 81001; 83690; 85025; 85610; 87040; 87086; 96361; 96365; 96375; 99284; J0696; J1170; J1885; J7040; J7050; 87088; 87186

== ENCOUNTER 2019-02-08 14:12 | Day surgery (SDC) | payer OTHER ==
[2019-02-08] MEDS ORDERED: Sodium Chloride 0.9% 10 ML Syringe FLUSH PRN (14:36)
[2019-02-08] MEDS ORDERED: Sodium Chloride 0.9% 2.5 ML Syringe FLUSH PRN (14:36)
[2019-02-08] MEDS ORDERED: Sodium Chloride 0.9% 10 ML SDV IV PRN (14:36)
[2019-02-08] MEDS ORDERED: Lactated Ringers 1,000 ML IV SCH (14:45)
[2019-02-08] MEDS ORDERED: Lidocaine 2% 5 ML SDV ONE (15:03)
[2019-02-08] MEDS ORDERED: Ondansetron 4 MG/2 ML SDV ONE (15:03)
[2019-02-08] MEDS ORDERED: Glycopyrrolate 0.2 MG/ML SDV ONE (15:03)
[2019-02-08] MEDS ORDERED: Ketorolac 30 MG/ML SDV ONE ×2 (15:03→17:35)
[2019-02-08] MEDS ORDERED: fentaNYL 100 MCG/2 ML SDV ONE (15:04)
[2019-02-08] MEDS ORDERED: Propofol 200 MG/20 ML SDV ONE (15:04)
[2019-02-08] MEDS ORDERED: Midazolam 1 MG/ML 2 ML SDV ONE (15:04)
[2019-02-08] MEDS ORDERED: fentaNYL 100 MCG/2 ML SDV IVPUSH PRN (15:13)
--- NOTE | 2019-02-08 15:13 | PCM.PREANE ---
Preanesthetic Assessment - Anesthesia/Transfusion/Family Hx Anesthesia History: Prior Anesthesia Without Reaction Other Type of Anesthesia Reaction Comment: Nausea post anesthesia 'they pre- treat me", no known famly history pblms Family History of Anesthesia Reaction: No Transfusion History: No Prior Transfusion(s) - Review of Systems General: No Symptoms Pulmonary: No Symptoms Cardiovascular: No Symptoms Gastrointestinal: Nausea Neurological: No Symptoms Other: Reports: None - Physical Assessment NPO Status Date: 02/08/19 NPO Status Time: 07:00 Height: 1.65 m Weight: 105.097 kg ASA Class: 2E Mental Status: Alert & Oriented x3 Dentition: Reports: Normal Dentition - Allergies Allergies/Adverse Reactions: Allergies Allergy/AdvReac Type Severity Reaction Status Date / Time meperidine HCl [From Demerol] Allergy Anaphylactic Verified 02/08/19 07:07 Shock - Acknowledgements Anesthesia Type Planned: General Anesthesia Pt an Appropriate Candidate for the Planned Anesthesia: Yes Alternatives and Risks of Anesthesia Discussed w Pt/Guardian: Yes Pt/Guardian Understands and Agrees with Anesthesia Plan: Yes PreAnesthesia Questionnaire HEENT History: Reports: Impaired Vision Other HEENT History: wears glasses Cardiovascular History: Reports: None Respiratory History: Reports: None Gastrointestinal History: Reports: None Genitourinary History: Reports: Renal Calculus, Urinary Incontinence Other Genitourinary History: has passed kidney stones 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: 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, 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 OB/BYN History: hysterectomy Neurological History: Reports: None Psychiatric History: Reports: None Endocrine/Metabolic History: Reports: Obesity/BMI 30+ Hematologic History: Reports: None Oncologic (Cancer) History: Reports: None Dermatologic History: Reports: None - Past Surgical History Head Surgeries/Procedures: Reports: None Cardiovascular Surgical History: Reports: None Respiratory Surgical History: Reports: None GI Surgical History: Reports: Bariatric Procedure, Cholecystectomy, Other (See Below) Female Surgical History: Reports: Breast Biopsy, Section, D&C, Hysterectomy, Salpingo-Oophorectomy, Other (See Below) Endocrine Surgical History: Reports: None Neurological Surgical History: Reports: None Musculoskeletal Surgical History: Reports: Arthroscopic Knee Oncologic Surgical History: Reports: None Dermatological Surgical History: Reports: None - SUBSTANCE USE Smoking Status *Q: Never Smoker Recreational Drug Use History: No - HOME MEDS Home Medications: Home Meds Tolterodine Tartrate [Detrol LA] 1 tab PO DAILY 10/09/15 [History] - CURRENT (IN HOUSE) MEDS Current Meds: Current Medications Lactated Ringer's (Ringers, Lactated) 1,000 mls @ 100 mls/hr IV ASDIRECTED SENTHIL Sodium Chloride (Saline Flush) 10 ml FLUSH ASDIRECTED PRN PRN Reason: Keep Vein Open Sodium Chloride (Saline Flush) 2.5 ml FLUSH ASDIRECTED PRN PRN Reason: Keep Vein Open Sodium Chloride (Normal Saline) 10 ml IV ASDIRECTED PRN PRN Reason: IV Use Discontinued Medications Fentanyl (Sublimaze) Confirm Administered Dose 100 mcg .ROUTE .STK-MED ONE Stop: 02/08/19 15:05 Glycopyrrolate (Robinul) Confirm Administered Dose 0.2 mg .ROUTE .STK-MED ONE Stop: 02/08/19 15:04 Ketorolac Tromethamine (Toradol) Confirm Administered Dose 30 mg .ROUTE .STK- MED ONE Stop: 02/08/19 15:04 Lidocaine (Xylocaine-Mpf 2%) Confirm Administered Dose 5 ml .ROUTE .STK-MED ONE Stop: 02/08/19 15:04 Midazolam HCl (Versed 1 Mg/Ml) Confirm Administered Dose 2 mg .ROUTE .STK-MED ONE Stop: 02/08/19 15:05 Ondansetron HCl (Zofran) Confirm Administered Dose 4 mg .ROUTE .STK-MED ONE Stop: 02/08/19 15:04 Propofol (Diprivan 20 Ml) Confirm Administered Dose 200 mg .ROUTE .STK-MED ONE Stop: 02/08/19 15:05 Succinylcholine Chloride (Succinylcholine Chloride) Confirm Administered Dose 200 mg .ROUTE .STK-MED ONE Stop: 02/08/19 15:04
[2019-02-08] MEDS ORDERED: Iopamidol 200-M 10 ML vial ITHECAL ONE (16:15)
--- NOTE | 2019-02-08 17:57 | PCM.POSTAN ---
POST ANESTHESIA ASSESSMENT - MENTAL STATUS Mental Status: Alert - VITAL SIGNS Vital Signs: Last Vital Signs Temp 37.4 C 02/08/19 17:33 Pulse 72 02/08/19 17:48 Resp 17 02/08/19 17:48 BP 125/65 02/08/19 17:48 Pulse Ox 92 L 02/08/19 17:48 - RESPIRATORY Respiratory Status: Respiratory Rate WNL - CARDIOVASCULAR CV Status: Pulse Rate WNL - GASTROINTESTINAL GI Status: No Symptoms - POST OP HYDRATION Hydration Status: Adequate & Stable
[2019-02-08 21:44] VITALS: BP 112/58
--- NOTE | 2019-02-09 01:00 | OR ---
SURGEON: Victor Hugo Hayes M.D. DATE OF PROCEDURE: 02/08/2019 PREOPERATIVE DIAGNOSIS: 9 mm obstructing right ureteropelvic junction stone with urinary tract infection. POSTOPERATIVE DIAGNOSIS: 9 mm obstructing right ureteropelvic junction stone with urinary tract infection. OPERATION: Cystoscopy, double-J stent placement. DESCRIPTION OF PROCEDURE: The patient was given adequate sedation, placed in dorsal lithotomy position, prepped and draped in sterile drapes. 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 A guidewire was advanced in the right ureter, however, could not go beyond the stone so a Glidewire was then put in, passed the stone, and a 6-Liberian 26 centimeter double- J stent was placed over the guidewire. Position was confirmed on fluoroscopy, the bladder was emptied, and the patient was moved to recovery room in stable condition. PLAN: She will be sent home on Cipro 500 twice a day for the next week, and I will see her in the office in one weeks' time to arrange for ureteroscopy and laser lithotripsy. RAIN / DENY /[id number]
[2019-02-09] MEDS ORDERED: Tolterodine 2 MG Cap.ER PO SCH (09:00)
--- NOTE | 2019-02-09 16:14 | CR ---
Indication: Cystoscopy with stent placement. Technique: 2 intraoperative views of the right upper quadrant were obtained. Comparison: CT scan of the abdomen and pelvis from earlier the same day. Findings: These images demonstrate the proximal end of a right ureteral stent. IMPRESSION Intraoperative images obtained. Dictated by Lesia Alexandre MD @ Feb 09 2019 4:11PM Signed by Dr. Lesia Alexandre @ Feb 09 2019 4:12PM
== END 2019-02-08 21:05 | disposition home or self-care (01) ==
LOC: MW.SDS 14:12 → MW.MS 14:18 → MW.SDS 21:05
PROVIDERS: ATTEND Urology
DX: N20.2 Calculus of kidney with calculus of ureter (principal); N30.80 Other cystitis without hematuria; M17.11 Unilateral primary osteoarthritis, right knee; E66.9 Obesity, unspecified; Z88.5 Allergy status to narcotic agent; Z79.899 Other long term (current) drug therapy; Z79.2 Long term (current) use of antibiotics; Z87.891 Personal history of nicotine dependence; Z68.38 Body mass index [BMI] 38.0-38.9, adult
CPT/HCPCS: 52320; 52332; 76000; 81025; C1769; C2617; J2001; J2250; J2405; J2704; J3010; J3490; J7120; J0330; J1885; Q9966

== ENCOUNTER 2019-02-23 06:44 | Day surgery (SDC) | payer OTHER ==
[~2019-02-23 06:44] MED LIST: Lactated Ringers 1,000 ML IV SCH; Sodium Chloride 0.9% 10 ML SDV IV PRN; Sodium Chloride 0.9% 10 ML Syringe FLUSH PRN; Sodium Chloride 0.9% 2.5 ML Syringe FLUSH PRN; ceFAZolin 1 GM Vial IV ONE; ceFAZolin 1 GM in Premix Bag 1 BAG IV SCH
[2019-02-23] MEDS ORDERED: Midazolam 1 MG/ML 2 ML SDV ONE (07:26)
[2019-02-23] MEDS ORDERED: fentaNYL 100 MCG/2 ML SDV ONE (07:27)
[2019-02-23] MEDS ORDERED: Lidocaine 2% 5 ML SDV ONE (07:29)
[2019-02-23] MEDS ORDERED: Propofol 200 MG/20 ML SDV ONE (07:30)
[2019-02-23] MEDS ORDERED: Rocuronium 100 MG/10 ML Syringe ONE ×2 (07:31→09:47)
[2019-02-23] MEDS ORDERED: Iopamidol 408 MG/ML 50 ML SDV ONE (07:33)
--- NOTE | 2019-02-23 07:33 | PCM.PREANE ---
Preanesthetic Assessment - Anesthesia/Transfusion/Family Hx Anesthesia History: Prior Anesthesia Without Reaction Other Type of Anesthesia Reaction Comment: Nausea post anesthesia 'they pre- treat me", no known famly history pblms Family History of Anesthesia Reaction: No Transfusion History: No Prior Transfusion(s) - Review of Systems General: No Symptoms Pulmonary: No Symptoms Cardiovascular: No Symptoms Gastrointestinal: No Symptoms Neurological: No Symptoms Other: Reports: None - Physical Assessment Vital Signs: Last Vital Signs Temp 98.1 F 02/23/19 06:45 Pulse 67 02/23/19 06:45 Resp 16 02/23/19 06:45 BP 122/66 02/23/19 06:45 Pulse Ox 98 02/23/19 06:45 Height: 5 ft 6 in Weight: 106.594 kg ASA Class: 2 Mental Status: Alert & Oriented x3 Airway Class: Mallampati = 1 Dentition: Reports: Normal Dentition ROM/Head Extension: Full Lungs: Clear to Auscultation, Normal Respiratory Effort Cardiovascular: Regular Rate, Regular Rhythm - Allergies Allergies/Adverse Reactions: Allergies Allergy/AdvReac Type Severity Reaction Status Date / Time meperidine HCl [From Demerol] Allergy "BP Verified 02/17/19 13:25 dropped and I passed out" - Blood Blood Available: No - Anesthesia Plan Pre-Op Medication Ordered: None - Acknowledgements Anesthesia Type Planned: General Anesthesia Pt an Appropriate Candidate for the Planned Anesthesia: Yes Alternatives and Risks of Anesthesia Discussed w Pt/Guardian: Yes Pt/Guardian Understands and Agrees with Anesthesia Plan: Yes Additional Comments: PMH: s/p hyst, PLAN: get PreAnesthesia Questionnaire HEENT History: Reports: Impaired Vision Other HEENT History: wears glasses Cardiovascular History: Reports: None Respiratory History: Reports: None Gastrointestinal History: Reports: None Genitourinary History: Reports: Renal Calculus, Urinary Incontinence 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: 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, Musculoskeletal History: Reports: None Neurological History: Reports: None Psychiatric History: Reports: None Endocrine/Metabolic History: Reports: Obesity/BMI 30+ Hematologic History: Reports: None Immunologic History: Reports: None Oncologic (Cancer) History: Reports: None Dermatologic History: Reports: None - Past Surgical History Head Surgeries/Procedures: Reports: None HEENT Surgical History: Reports: None Cardiovascular Surgical History: Reports: None Respiratory Surgical History: Reports: None GI Surgical History: Reports: Bariatric Procedure, Cholecystectomy, Other (See Below) Other GI Surgeries/Procedures: panniculectomy Female Surgical History: Reports: Breast Biopsy, Section, D&C, Hysterectomy, Salpingo-Oophorectomy, Other (See Below) Other Female Surgeries/Procedures: laparoscopy, presley mastopexy, cysto with stent placement 1 week ago Endocrine Surgical History: Reports: None Neurological Surgical History: Reports: None Musculoskeletal Surgical History: Reports: Arthroscopic Knee Oncologic Surgical History: Reports: Biopsy of Breast Dermatological Surgical History: Reports: None - SUBSTANCE USE Smoking Status *Q: Former Smoker Recreational Drug Use History: No - HOME MEDS Home Medications: Home Meds Tolterodine Tartrate [Detrol LA] 1 tab PO DAILY 10/09/15 [History] - CURRENT (IN HOUSE) MEDS Current Meds: Current Medications Lactated Ringer's (Ringers, Lactated) 1,000 mls @ 100 mls/hr IV ASDIRECTED SENTHIL Last Admin: 02/23/19 07:02 Dose: 100 mls/hr Cefazolin Sodium/Dextrose 1 gm (/ Premix) 50 mls @ 100 mls/hr IV ONETIME SENTHIL Sodium Chloride (Saline Flush) 10 ml FLUSH ASDIRECTED PRN PRN Reason: Keep Vein Open Sodium Chloride (Saline Flush) 2.5 ml FLUSH ASDIRECTED PRN PRN Reason: Keep Vein Open Sodium Chloride (Normal Saline) 10 ml IV ASDIRECTED PRN PRN Reason: IV Use Discontinued Medications Fentanyl (Sublimaze) Confirm Administered Dose 100 mcg .ROUTE .STK-MED ONE Stop: 02/23/19 07:28 Lidocaine (Xylocaine-Mpf 2%) Confirm Administered Dose 5 ml .ROUTE .STK-MED ONE Stop: 02/23/19 07:30 Midazolam HCl (Versed 1 Mg/Ml) Confirm Administered Dose 2 mg .ROUTE .STK-MED ONE Stop: 02/23/19 07:27 Propofol (Diprivan 20 Ml) Confirm Administered Dose 200 mg .ROUTE .STK-MED ONE Stop: 02/23/19 07:31
[2019-02-23] MEDS ORDERED: ceFAZolin 1 GM Vial ONE (08:14)
[2019-02-23] MEDS ORDERED: Sugammadex Sodium 200 MG/2 ML VIAL ONE (09:21)
[2019-02-23] MEDS ORDERED: Ondansetron 4 MG/2 ML SDV ONE (09:36)
[2019-02-23] MEDS: Haloperidol Lactate 5 MG/ML SDV IM ONE ×2 (12:03→12:40)
--- NOTE | 2019-02-23 12:20 | PCM.POSTAN ---
POST ANESTHESIA ASSESSMENT - MENTAL STATUS Mental Status: Alert, Oriented - VITAL SIGNS Vital Signs: Last Vital Signs Temp 97.3 F 02/23/19 10:57 Pulse 71 02/23/19 12:12 Resp 14 02/23/19 12:12 BP 138/72 02/23/19 12:12 Pulse Ox 97 02/23/19 12:12 - RESPIRATORY Respiratory Status: Respiratory Rate WNL, Airway Patent, O2 Saturation Stable - CARDIOVASCULAR CV Status: Pulse Rate WNL, Blood Pressure Stable - GASTROINTESTINAL GI Status: No Symptoms - PAIN Pain Score: 1 - POST OP HYDRATION Hydration Status: Adequate & Stable
--- NOTE | 2019-02-23 12:21 | PCM.POSTAN ---
POST ANESTHESIA ASSESSMENT - MENTAL STATUS Mental Status: Alert, Oriented - VITAL SIGNS Vital Signs: Last Vital Signs Temp 97.3 F 02/23/19 10:57 Pulse 69 02/23/19 12:17 Resp 18 02/23/19 12:17 BP 138/72 02/23/19 12:17 Pulse Ox 95 02/23/19 12:17 - RESPIRATORY Respiratory Status: Respiratory Rate WNL, Airway Patent, O2 Saturation Stable - CARDIOVASCULAR CV Status: Pulse Rate WNL, Blood Pressure Stable - GASTROINTESTINAL GI Status: No Symptoms - POST OP HYDRATION Hydration Status: Adequate & Stable
[2019-02-23] MEDS ORDERED: Haloperidol Lactate 5 MG/ML SDV IM ONE (12:40)
[2019-02-23 13:50] VITALS: BP 136/72; PULSE 72
--- NOTE | 2019-02-23 14:17 | PCM48HPAN ---
Post Anesthesia Note - EVALUATION WITHIN 48HRS OF ANESTHETIC Vital Signs in Normal Range: Yes Patient Participated in Evaluation: Yes Respiratory Function Stable: Yes Airway Patent: Yes Cardiovascular Function Stable: Yes Hydration Status Stable: Yes Pain Control Satisfactory: Yes Nausea and Vomiting Control Satisfactory: Yes Mental Status Recovered: Yes Vital Signs: Last Vital Signs Temp 97.5 F 02/23/19 12:35 Pulse 72 02/23/19 13:30 Resp 16 02/23/19 13:30 BP 136/72 02/23/19 13:30 Pulse Ox 93 L 02/23/19 13:30
--- NOTE | 2019-02-23 16:17 | CR ---
Indication: Right ureteral placement. Technique: 33.3 seconds of intraoperative fluoroscopy was provided. Four intraoperative images were obtained. Comparison: February 08, 2019. Findings: FindingsImages demonstrate placement of a right ureteral stent. Impression: Intraoperative images were obtained Dictated by Lesia Alexandre MD @ Feb 23 2019 4:14PM Signed by Dr. Lesia Alexandre @ Feb 23 2019 4:15PM
--- NOTE | 2019-02-23 17:23 | OR ---
SURGEON: Victor Hugo Hayes M.D. DATE OF PROCEDURE: 02/23/2019 PREOPERATIVE DIAGNOSIS: 1 cm right renal pelvis stone. POSTOPERATIVE DIAGNOSIS: 1 cm right renal pelvis stone. OPERATIONS: Renoscopy, laser lithotripsy, and stent placement. DESCRIPTION OF PROCEDURE: The patient was given general anesthesia, placed in dorsal lithotomy position, prepped and draped in sterile drapes. The existing double-J stent was partially removed and the guidewire was advanced through that all the way up into the renal pelvis. The rest of the stent was then taken out. The rigid ureteroscope was advanced in the ureter, reached the renal pelvis, but could not see the stone. So the flexible ureteroscope was advanced over the second guidewire which was advanced through the ureteroscope. The stone was easily identified and broken up into multiple pieces. The stone was extremely hard. Some of the stone pieces were removed and at the end there were two or three small pieces that could not be contained within the Zero Tip basket to remove. With that done, a guidewire was placed and the existing guidewire was taken out. It was abandoned, and a 6-Icelandic 26 centimeter double-J stent was placed over the new guidewire. Position was confirmed with fluoroscopy. The bladder was emptied. The string at the end of the stent was taped to the inside of her right thigh. The patient tolerated the procedure well and was moved to recovery room in good condition. RAIN BARCLAY /[id number]
== END 2019-02-23 14:40 | disposition home or self-care (01) ==
LOC: MW.SDS 06:44
PROVIDERS: ATTEND Urology
DX: N20.0 Calculus of kidney (principal); N39.0 Urinary tract infection, site not specified; E66.9 Obesity, unspecified; M17.11 Unilateral primary osteoarthritis, right knee; Z88.5 Allergy status to narcotic agent; Z79.899 Other long term (current) drug therapy; Z68.37 Body mass index [BMI] 37.0-37.9, adult
CPT/HCPCS: C1769; C2617; J0690; J1630; J2001; J2250; J2405; J2704; J3010; J3490; J7120; Q9966

== ENCOUNTER 2019-03-18 13:32 | Emergency (ER) | payer OTHER ==
[2019-03-18] MEDS ORDERED: Sodium Chloride 0.9% 10 ML Syringe FLUSH PRN (13:45)
[2019-03-18] MEDS ORDERED: Sodium Chloride 0.9% 2.5 ML Syringe FLUSH PRN (13:45)
[2019-03-18] MEDS ORDERED: Sodium Chloride 0.9% 1,000 ML IV ONE (13:46)
[2019-03-18] MEDS ORDERED: Ondansetron 4 MG/2 ML SDV IVPUSH ONE ×2 (13:50→16:07)
[2019-03-18] MEDS ORDERED: cefTRIAXone 2 GM in Premix Bag 1 BAG IV ONE (14:57)
[2019-03-18 15:58] LABS: CARBON DIOXIDE,CO2 24.1 mmol/L (21.0-32.0); POTASSIUM,K 3.8 mmol/L (3.5-5.1)
--- NOTE | 2019-03-18 16:02 | EDM.PDOC ---
ED HPI GENERAL MEDICAL PROBLEM - General Chief Complaint: General Stated Complaint: FEVER, UTI, COLDS CHILLS Time Seen by Provider: 03/18/19 13:40 Source of Information: Reports: Patient History Limitations: Reports: No Limitations - History of Present Illness INITIAL COMMENTS - FREE TEXT/NARRATIVE: History of present illness: []Patient was seen a week and half ago and diagnosed with a UTI and put on antibiotics. Patient states he has felt feverish and chilled and that her in color has been different and she has a burning sensation. He denies any nausea , vomiting or diarrhea. Denies any abdominal pain. Review of systems: As per history of present illness and below otherwise all systems reviewed and negative. Past medical history: As per history of present illness and as reviewed below otherwise noncontributory. Surgical history: As per history of present illness and as reviewed below otherwise noncontributory. Social history: No reported history of drug or alcohol abuse. Family history: As per history of present illness and as reviewed below otherwise noncontributory. Physical exam: General: Well developed, well nourished in NAD HEENT: Atraumatic, normocephalic, pupils reactive, negative for conjunctival pallor or scleral icterus, mucous membranes moist, throat clear, neck supple, nontender, trachea midline. Lungs: Clear to auscultation, breath sounds equal bilaterally, chest nontender. Heart: S1S2, regular, negative for clicks, rubs, or JVD. Abdomen: NABS, Soft, nondistended, nontender. Negative for masses or hepatosplenomegaly. Negative for costovertebral tenderness. Pelvis: Stable nontender. Genitourinary: Deferred. Rectal: Deferred. Extremities: Atraumatic, negative for cords or calf pain. Neurovascular unremarkable. Neuro: Awake, alert, oriented. Cranial nerves II through XII unremarkable. Cerebellum unremarkable. Motor and sensory unremarkable throughout. Exam nonfocal. Skin:warm and dry Diagnostics: CBC, chemistry-elevated LFTs, UA, ultrasound abdomen-. Hepatomegaly. Three liver lesions with the largest measuring 6.6 cm. Patient does have known liver hemangiomas and angiomyolipoma. Previous contrast enhanced CT study is not available for comparison. Cholecystectomy. Dilated common bile duct measuring 1.2 cm which does not appear significantly changed from the prior study Therapeutics: Ceftriaxone, IV fluid ED Course: Stable Impression: Hepatomegaly with elevated LFTs and 3 liver lesions, stable chronic dilated common bile duct Prescriptions: None Plan: Follow-up with general surgery/GI Definitive disposition and diagnosis as appropriate pending reevaluation and review of above. Generalized Pain Score (Numeric/FACES): 5 - Related Data Allergies Allergy/AdvReac Type Severity Reaction Status Date / Time meperidine HCl [From Demerol] Allergy "BP Verified 02/17/19 13:25 dropped and I passed out" Home Meds: Home Meds Tolterodine Tartrate [Detrol LA] 1 tab PO DAILY 10/09/15 [History] Ondansetron HCl [Zofran] 4 mg PO Q4HR #12 tablet 03/18/19 [Rx] Past Medical History HEENT History: Reports: Impaired Vision Other HEENT History: wears glasses Cardiovascular History: Reports: None Respiratory History: Reports: None Gastrointestinal History: Reports: None Genitourinary History: Reports: Renal Calculus, Urinary Incontinence 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: 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, Musculoskeletal History: Reports: None Neurological History: Reports: None Psychiatric History: Reports: None Endocrine/Metabolic History: Reports: Obesity/BMI 30+ Hematologic History: Reports: None Immunologic History: Reports: None Oncologic (Cancer) History: Reports: None Dermatologic History: Reports: None - Past Surgical History Head Surgeries/Procedures: Reports: None HEENT Surgical History: Reports: None Cardiovascular Surgical History: Reports: None Respiratory Surgical History: Reports: None GI Surgical History: Reports: Bariatric Procedure, Cholecystectomy, Other (See Below) Other GI Surgeries/Procedures: panniculectomy Female Surgical History: Reports: Breast Biopsy, Section, D&C, Hysterectomy, Lithotripsy/ESWL, Salpingo-Oophorectomy, Ureteral Stent, Other ( See Below) Other Female Surgeries/Procedures: laparoscopy, presley mastopexy, cysto with stent placement 1 week ago Endocrine Surgical History: Reports: None Neurological Surgical History: Reports: None Musculoskeletal Surgical History: Reports: Arthroscopic Knee Oncologic Surgical History: Reports: Biopsy of Breast Dermatological Surgical History: Reports: None Social & Family History - Family History Family Medical History: Noncontributory Cardiac: Reports: CAD, Hypertension Endocrine/Metabolic: Reports: Diabetes, Type I - Tobacco Use Smoking Status *Q: Never Smoker - Caffeine Use Caffeine Use: Reports: Coffee, Soda - Recreational Drug Use Recreational Drug Use: No ED ROS GENERAL - Review of Systems Review Of Systems: See Below ED EXAM, GENERAL - Physical Exam Exam: See Below Course - Vital Signs Last Recorded V/S: Last Vital Signs Temp 98.7 F 03/18/19 13:39 Pulse 78 03/18/19 18:00 Resp 20 03/18/19 18:00 BP 113/75 03/18/19 18:00 Pulse Ox 99 03/18/19 18:00 - Orders/Labs/Meds Orders: Active Orders 24 hr Category Date Time Status CULTURE URINE [RM] Routine Lab 03/18/19 14:30 Received Saline Lock Insert [OM.PC] Stat Oth 03/18/19 13:45 Ordered Labs: Laboratory Tests 03/18/19 03/18/19 03/18/19 Range/Units 14:30 14:40 14:40 WBC 6.61 (4.0-11.0) K/uL RBC 4.32 (4.30-5.90) M/uL Hgb 11.4 L (12.0-16.0) g/dL Hct 35.0 L (36.0-46.0) % MCV 81.0 (80.0-98.0) fL MCH 26.4 L (27.0-32.0) pg MCHC 32.6 (31.0-37.0) g/dL RDW Std Deviation 41.3 (28.0-62.0) fl RDW Coeff of Akin 14 (11.0-15.0) % Plt Count 165 (150-400) K/uL MPV 9.70 (7.40-12.00) fL Neut % (Auto) 88.9 H (48.0-80.0) % Lymph % (Auto) 2.1 L (16.0-40.0) % Hamilton % (Auto) 8.0 (0.0-15.0) % Eos % (Auto) 0.8 (0.0-7.0) % Baso % (Auto) 0.2 (0.0-1.5) % Neut # (Auto) 5.9 H (1.4-5.7) K/uL Lymph # (Auto) 0.1 L (0.6-2.4) K/uL Hamilton # (Auto) 0.5 (0.0-0.8) K/uL Eos # (Auto) 0.1 (0.0-0.7) K/uL Baso # (Auto) 0.0 (0.0-0.1) K/uL Nucleated RBC % 0.0 /100WBC Nucleated RBCs # 0 K/uL Sodium 135 L (136-145) mmol/L Potassium 3.8 (3.5-5.1) mmol/L Chloride 99 (98-107) mmol/L Carbon Dioxide 24.1 (21.0-32.0) mmol/L BUN 8 (7.0-18.0) mg/dL Creatinine 1.0 (0.6-1.0) mg/dL Est Cr Clr Drug Dosing 57.20 mL/min Estimated GFR (MDRD) 57.6 ml/min Glucose 131 H (74-106) mg/dL POC Glucose (60-110) mg/dL Calcium 8.6 (8.5-10.1) mg/dL Total Bilirubin 2.9 H (0.2-1.0) mg/dL AST 410 H (15-37) IU/L ALT 322 H (14-63) IU/L Alkaline Phosphatase 529 H (46-116) U/L Total Protein 7.0 (6.4-8.2) g/dL Albumin 2.7 L (3.4-5.0) g/dL Globulin 4.3 H (2.6-4.0) g/dL Albumin/Globulin Ratio 0.6 L (0.9-1.6) Lipase 61 L (73-393) U/L Urine Color DARK YELLOW Urine Appearance SLT CLOUDY Urine pH 6.0 (5.0-8.0) Ur Specific Hackberry >= 1.030 (1.001-1.035) Urine Protein 30 H (NEGATIVE) mg/dL Urine Glucose (UA) 100 H (NEGATIVE) mg/dL Urine Ketones >=80 (NEGATIVE) mg/dL Urine Occult Blood MODERATE H (NEGATIVE) Urine Nitrite NEGATIVE (NEGATIVE) Urine Bilirubin LARGE H (NEGATIVE) Urine Ictotest POSITIVE Urine Urobilinogen >=8.0 H (<2.0) EU/dL Ur Leukocyte Esterase MODERATE H (NEGATIVE) Urine RBC 3-6 (0-2/HPF) Urine WBC 10-15 (0-5/HPF) Ur Epithelial Cells MODERATE (NONE-FEW) Urine Bacteria FEW (NEGATIVE) 03/18/19 Range/Units 15:48 WBC (4.0-11.0) K/uL RBC (4.30-5.90) M/uL Hgb (12.0-16.0) g/dL Hct (36.0-46.0) % MCV (80.0-98.0) fL MCH (27.0-32.0) pg MCHC (31.0-37.0) g/dL RDW Std Deviation (28.0-62.0) fl RDW Coeff of Kain (11.0-15.0) % Plt Count (150-400) K/uL MPV (7.40-12.00) fL Neut % (Auto) (48.0-80.0) % Lymph % (Auto) (16.0-40.0) % Hamilton % (Auto) (0.0-15.0) % Eos % (Auto) (0.0-7.0) % Baso % (Auto) (0.0-1.5) % Neut # (Auto) (1.4-5.7) K/uL Lymph # (Auto) (0.6-2.4) K/uL Hamilton # (Auto) (0.0-0.8) K/uL Eos # (Auto) (0.0-0.7) K/uL Baso # (Auto) (0.0-0.1) K/uL Nucleated RBC % /100WBC Nucleated RBCs # K/uL Sodium (136-145) mmol/L Potassium (3.5-5.1) mmol/L Chloride (98-107) mmol/L Carbon Dioxide (21.0-32.0) mmol/L BUN (7.0-18.0) mg/dL Creatinine (0.6-1.0) mg/dL Est Cr Clr Drug Dosing mL/min Estimated GFR (MDRD) ml/min Glucose (74-106) mg/dL POC Glucose 123 H (60-110) mg/dL Calcium (8.5-10.1) mg/dL Total Bilirubin (0.2-1.0) mg/dL AST (15-37) IU/L ALT (14-63) IU/L Alkaline Phosphatase (46-116) U/L Total Protein (6.4-8.2) g/dL Albumin (3.4-5.0) g/dL Globulin (2.6-4.0) g/dL Albumin/Globulin Ratio (0.9-1.6) Lipase (73-393) U/L Urine Color Urine Appearance Urine pH (5.0-8.0) Ur Specific Hackberry (1.001-1.035) Urine Protein (NEGATIVE) mg/dL Urine Glucose (UA) (NEGATIVE) mg/dL Urine Ketones (NEGATIVE) mg/dL Urine Occult Blood (NEGATIVE) Urine Nitrite (NEGATIVE) Urine Bilirubin (NEGATIVE) Urine Ictotest Urine Urobilinogen (<2.0) EU/dL Ur Leukocyte Esterase (NEGATIVE) Urine RBC (0-2/HPF) Urine WBC (0-5/HPF) Ur Epithelial Cells (NONE-FEW) Urine Bacteria (NEGATIVE) Meds: Medications Discontinued Medications Generic Name Dose Route Start Last Admin Trade Name Freq PRN Reason Stop Dose Admin Sodium Chloride 1,000 mls @ 999 mls/hr 03/18/19 13:46 03/18/19 14:32 Normal Saline IV 03/18/19 14:46 999 mls/hr .Bolus ONE Administration Ceftriaxone Sodium/Dextrose 2 50 mls @ 100 mls/hr 03/18/19 14:57 03/18/19 16: 01 gm/ Premix IV 03/18/19 15:26 100 mls/hr ONETIME ONE Administration Morphine Sulfate 2 mg 03/18/19 16:07 03/18/19 16:13 Morphine IVPUSH 03/18/19 16:08 1 mg ONETIME ONE Administration Ondansetron HCl 4 mg 03/18/19 13:50 03/18/19 14:32 Zofran IVPUSH 03/18/19 13:51 4 mg ONETIME ONE Administration Ondansetron HCl 4 mg 03/18/19 16:07 03/18/19 16:25 Zofran IVPUSH 03/18/19 16:08 Not Given ONETIME ONE Sodium Chloride 10 ml 03/18/19 13:45 Saline Flush FLUSH ASDIRECTED PRN Keep Vein Open Sodium Chloride 2.5 ml 03/18/19 13:45 Saline Flush FLUSH ASDIRECTED PRN Keep Vein Open Departure - Departure Time of Disposition: 17:43 Disposition: Home, Self-Care 01 Condition: Good Clinical Impression: Hepatomegaly, Liver masses UTI (urinary tract infection) Qualifiers: Urinary tract infection type: site unspecified Hematuria presence: without hematuria Qualified Code(s): N39.0 - Urinary tract infection, site not specified - Discharge Information *PRESCRIPTION DRUG MONITORING PROGRAM REVIEWED*: No *COPY OF PRESCRIPTION DRUG MONITORING REPORT IN PATIENT MARILYN: No Prescriptions: Ondansetron HCl [Zofran] 4 mg PO Q4HR #12 tablet Instructions: Hepatomegaly, [id number], Urinary Tract Infection, Adult Referrals: Toño Pérez MD [Primary Care Provider] - Forms: ED Department Discharge Additional Instructions: The following information is given to patients seen in the emergency department who are being discharged to home. This information is to outline your options for follow-up care. We provide all patients seen in our emergency department with a follow-up referral. The need for follow-up, as well as the timing and circumstances, are variable depending upon the specifics of your emergency department visit. If you don't have a primary care physician on staff, we will provide you with a referral. We always advise you to contact your personal physician following an emergency department visit to inform them of the circumstance of the visit and for follow-up with them and/or the need for any referrals to a consulting specialist. The emergency department will also refer you to a specialist when appropriate. This referral assures that you have the opportunity for follow-up care with a specialist. All of these measure are taken in an effort to provide you with optimal care, which includes your follow-up. Under all circumstances we always encourage you to contact your private physician who remains a resource for coordinating your care. When calling for follow-up care, please make the office aware that this follow-up is from your recent emergency room visit. If for any reason you are refused follow-up, please contact the [facility] Emergency Department at and asked to speak to the emergency department charge nurse. Take meds as directed, follow up with your primary care physician, return to ER if symptoms worsen or change. [facility] - General Surgery Professional Building [address] [place] [address], [address] [place] [address] [facility] [address] [place] [id number] - My Orders Last 24 Hours: My Active Orders 03/18/19 13:45 Saline Lock Insert [OM.PC] Stat 03/18/19 14:30 CULTURE URINE [RM] Routine - Assessment/Plan Last 24 Hours: My Active Orders 03/18/19 13:45 Saline Lock Insert [OM.PC] Stat 03/18/19 14:30 CULTURE URINE [RM] Routine
[2019-03-18] MEDS ORDERED: Morphine 2 MG/ML Syringe IVPUSH ONE (16:07)
--- NOTE | 2019-03-18 17:20 | US ---
CLINICAL HISTORY: Abnormal LFT Comparison CT 03/02/2019 FINDINGS: Liver is enlarged measuring 21.3 cm. There is a normal appearance of the hepatic IVC and proximal abdominal aorta. There is no evidence of ascites. Circumscribed hyperechoic lesion liver measuring 3.7 x 2.5 x 3.1 centimeter. There is also a 6.6 x 6.4 x 4.3 centimeter heterogeneous mixed echotexture lesion in the liver Hyperechoic lesion measuring 0.9 x 1 x 0.9 centimeters Cholecystectomy . The common bile duct measures 1.2 cm which does not appear significantly changed from the prior CT scan. The pancreas appears normal. There is no evidence of a stone or hydronephrosis within the right kidney. The right kidney measures 11.8 cm in length. IMPRESSION: 1. Hepatomegaly. 2. Three liver lesions with the largest measuring 6.6 cm. Patient does have known liver hemangiomas and angiomyolipoma. Previous contrast enhanced CT study is not available for comparison. 3. Cholecystectomy. Dilated common bile duct measuring 1.2 cm which does not appear significantly changed from the prior study. Dictated by Bridgett Cerda MD @ Mar 18 2019 5:11PM Signed by Dr. Bridgett Cerda @ Mar 18 2019 5:18PM
[2019-03-18 18:04] VITALS: BP 113/75; PULSE 78
== END 2019-03-18 18:00 | disposition home or self-care (01) ==
LOC: MW.ED 13:32
DX: N39.0 Urinary tract infection, site not specified (principal); R16.0 Hepatomegaly, not elsewhere classified; K83.8 Other specified diseases of biliary tract; R94.5 Abnormal results of liver function studies; E66.9 Obesity, unspecified; Z68.37 Body mass index [BMI] 37.0-37.9, adult; Z88.5 Allergy status to narcotic agent
CPT/HCPCS: 76705; 80053; 81001; 82962; 83690; 85025; 87086; 96361; 96365; 96375; 99284; J0696; J2270; J2405; J7040; 99283

== ENCOUNTER 2019-11-02 15:23 | Emergency (ER) | payer OTHER ==
[2019-11-02] MEDS ORDERED: Sodium Chloride 0.9% 10 ML Syringe FLUSH PRN ×2 (15:32→16:23)
[2019-11-02] MEDS ORDERED: Ondansetron 4 MG/2 ML SDV IVPUSH ONE (15:32)
[2019-11-02] MEDS ORDERED: Sodium Chloride 0.9% 1,000 ML IV ONE (15:32)
[2019-11-02] MEDS ORDERED: Sodium Chloride 0.9% 2.5 ML Syringe FLUSH PRN ×3 (15:32→16:23)
[2019-11-02] MEDS ORDERED: Ketorolac 30 MG/ML SDV IVPUSH ONE (15:40)
[2019-11-02] MEDS ORDERED: HYDROmorphone 2 MG/ML Syringe IVPUSH ONE (15:40)
--- NOTE | 2019-11-02 15:40 | EDM.PDOC ---
ED HPI GENERAL MEDICAL PROBLEM - General Chief Complaint: Flank Pain Stated Complaint: NAUSEA Time Seen by Provider: 11/02/19 15:28 Source of Information: Reports: Patient History Limitations: Reports: No Limitations - History of Present Illness INITIAL COMMENTS - FREE TEXT/NARRATIVE: 54-year-old female with history of gastric bypass, cholecystectomy, hysterectomy , UTI, kidney stones, ureterolithiasis presents with left flank pain. Pain is moderate, and constant ongoing for 2 weeks, today her pain started radiating to the left upper quadrant, associated with fever = 101.8 today and tachycardia of 117 bpm at the respiratory clinic, nausea, dry heaving, chills. Her urine today from the clinic demonstrated small occult blood, negative nitrite/leukocyte esterase, urine WBC 0-3 with few bacteria. She denies coughing, headache, shortness of breath, diarrhea, vomiting. ROS: A 10-point review of systems, other than pertinent positives and negatives as stated per HPI, is otherwise negative PHYSICAL EXAM General: AOx4, GCS = 15, moderate distress, tearful HEENT: dry mucous membrane Neck: supple, no meningismus, no Kernig or Brudzinski Cardiac: S1S2 RRR Respiratory: CTAB, no crackles or rales, no wheezing Abdomen: Soft, mild LUQ ttp, no rebound or guarding, nondistended, no pulsatile mass. Back: mild left CVAT Musculoskeletal: NVI distally, no deformity Neuro: No focal deficits, CN 2 - 12 WNL. MEDICAL DECISION MAKING: I reviewed the patients past medical records, lab and radiographic findings. I discussed the case with family members. My differential diagnosis included: UTI, ureterolithiasis, pyelonephritis, gastric bypass complication. Patient's fever resolved after IV fluids and Tylenol in the ED. She was not tachycardic to suggest sepsis. I do not suspect sepsis. Her urine demonstrated RBCs despite a CAT scan that did not reveal ureterolithiasis, however her clinical presentation was consistent with her actively passing a ureterolith. She likely just passed her ureterolith prior to her CAT scan. CT with Gastrografin did not demonstrate any complications with her gastric bypass. Her pain was reassessed and improved down to 1/10, repeat abdominal exam did not reveal any abnormalities, it was soft, nontender, no rebound or guarding, I do not suspect need for admission or surgical consult. I instructed her to follow-up with her PCP for her transaminitis and her hemangioma is discovered on CT. She had previously had a GI work-up for her hemangioma at [facility] and was cleared. I gave her strict return precautions for returning fever or persistent pain. 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: 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, Musculoskeletal History: Reports: None Neurological History: Reports: None Psychiatric History: Reports: None Endocrine/Metabolic History: Reports: Obesity/BMI 30+ Hematologic History: Reports: None Immunologic History: Reports: None Oncologic (Cancer) History: Reports: None Dermatologic History: Reports: None - Past Surgical History Head Surgeries/Procedures: Reports: None HEENT Surgical History: Reports: None Cardiovascular Surgical History: Reports: None Respiratory Surgical History: Reports: None GI Surgical History: Reports: Bariatric Procedure, Cholecystectomy, Other (See Below) Other GI Surgeries/Procedures: panniculectomy Female Surgical History: Reports: Breast Biopsy, Section, D&C, Hysterectomy, Lithotripsy/ESWL, Salpingo-Oophorectomy, Ureteral Stent, Other ( See Below) Other Female Surgeries/Procedures: laparoscopy, presley mastopexy, cysto with stent placement 1 week ago Endocrine Surgical History: Reports: None Neurological Surgical History: Reports: None Musculoskeletal Surgical History: Reports: Arthroscopic Knee Oncologic Surgical History: Reports: Biopsy of Breast Dermatological Surgical History: Reports: None Social & Family History - Family History Family Medical History: Noncontributory Cardiac: Reports: CAD, Hypertension Endocrine/Metabolic: Reports: Diabetes, Type I - Caffeine Use Caffeine Use: Reports: Coffee, Soda ED ROS GENERAL - Review of Systems Review Of Systems: See Below (see dictation) ED EXAM, GI/ABD - Physical Exam Exam: See Below (see dictation) Exam Limited By: No Limitations General Appearance: Alert, Severe Distress, Obese Course - Vital Signs Last Recorded V/S: Last Vital Signs Temp 97.8 F 11/02/19 18:45 Pulse 80 11/02/19 18:45 Resp 17 11/02/19 18:45 BP 110/61 11/02/19 18:45 Pulse Ox 94 L 11/02/19 18:45 - Orders/Labs/Meds Orders: Active Orders 24 hr Category Date Time Status CULTURE BLOOD [BC] Stat Lab 11/02/19 15:48 Received CULTURE BLOOD [BC] Stat Lab 11/02/19 16:23 Results Sodium Chloride 0.9% [Saline Flush] Med 11/02/19 15:32 Active 10 ml FLUSH ASDIRECTED PRN Sodium Chloride 0.9% [Saline Flush] Med 11/02/19 16:23 Active 10 ml FLUSH ASDIRECTED PRN Sodium Chloride 0.9% [Saline Flush] Med 11/02/19 15:32 Active 2.5 ml FLUSH ASDIRECTED PRN Sodium Chloride 0.9% [Saline Flush] Med 11/02/19 15:32 Active 2.5 ml FLUSH ASDIRECTED PRN Sodium Chloride 0.9% [Saline Flush] Med 11/02/19 16:23 Active 2.5 ml FLUSH ASDIRECTED PRN Blood Culture x2 Reflex Set [OM.PC] Stat Ot 11/02/19 15:56 Ordered Saline Lock Insert [OM.PC] Stat Ot 11/02/19 15:32 Ordered Saline Lock Insert [OM.PC] Stat Ot 11/02/19 16:29 Ordered Severe Sepsis Onset Time [OM.PC] Stat Ot 11/02/19 15:56 Ordered Severe Sepsis Onset Time [OM.PC] Stat [facility] 11/02/19 16:29 Ordered Medication Orders Sodium Chloride (Saline Flush) 2.5 ml FLUSH ASDIRECTED PRN PRN Reason: Keep Vein Open Sodium Chloride (Saline Flush) 10 ml FLUSH ASDIRECTED PRN PRN Reason: Keep Vein Open Sodium Chloride (Saline Flush) 2.5 ml FLUSH ASDIRECTED PRN PRN Reason: Keep Vein Open Sodium Chloride (Saline Flush) 10 ml FLUSH ASDIRECTED PRN PRN Reason: Keep Vein Open Sodium Chloride (Saline Flush) 2.5 ml FLUSH ASDIRECTED PRN PRN Reason: Keep Vein Open Labs: Laboratory Tests 11/02/19 11/02/19 11/02/19 Range/Units 15:48 15:48 15:48 WBC 8.10 (4.0-11.0) K/uL RBC 4.77 (4.30-5.90) M/uL Hgb 13.5 (12.0-16.0) g/dL Hct 41.5 (36.0-46.0) % MCV 87.0 (80.0-98.0) fL MCH 28.3 (27.0-32.0) pg MCHC 32.5 (31.0-37.0) g/dL RDW Std Deviation 43.3 (28.0-62.0) fl RDW Coeff of Akin 14 (11.0-15.0) % Plt Count 147 L (150-400) K/uL MPV 9.70 (7.40-12.00) fL Neut % (Auto) 92.3 H (48.0-80.0) % Lymph % (Auto) 2.6 L (16.0-40.0) % Waldo % (Auto) 4.6 (0.0-15.0) % Eos % (Auto) 0.4 (0.0-7.0) % Baso % (Auto) 0.1 (0.0-1.5) % Neut # (Auto) 7.5 H (1.4-5.7) K/uL Lymph # (Auto) 0.2 L (0.6-2.4) K/uL Waldo # (Auto) 0.4 (0.0-0.8) K/uL Eos # (Auto) 0.0 (0.0-0.7) K/uL Baso # (Auto) 0.0 (0.0-0.1) K/uL Nucleated RBC % 0.0 /100WBC Nucleated RBCs # 0 K/uL Lactate 1.1 (0.20-2.00) mmol/L Sodium 139 (136-145) mmol/L Potassium 4.2 (3.5-5.1) mmol/L Chloride 103 (98-107) mmol/L Carbon Dioxide 26.7 (21.0-32.0) mmol/L BUN 8 (7.0-18.0) mg/dL Creatinine 0.9 (0.6-1.0) mg/dL Est Cr Clr Drug Dosing TNP Estimated GFR (MDRD) > 60.0 ml/min Glucose 136 H (74-106) mg/dL Calcium 8.7 (8.5-10.1) mg/dL Total Bilirubin 0.6 (0.2-1.0) mg/dL AST 259 H (15-37) IU/L ALT 171 H (14-63) IU/L Alkaline Phosphatase 250 H (46-116) U/L Total Protein 7.2 (6.4-8.2) g/dL Albumin 3.8 (3.4-5.0) g/dL Globulin 3.4 (2.6-4.0) g/dL Albumin/Globulin Ratio 1.1 (0.9-1.6) Lipase 67 L (73-393) U/L Urine Color Urine Appearance Urine pH (5.0-8.0) Ur Specific Chester (1.001-1.035) Urine Protein (NEGATIVE) mg/dL Urine Glucose (UA) (NEGATIVE) mg/dL Urine Ketones (NEGATIVE) mg/dL Urine Occult Blood (NEGATIVE) Urine Nitrite (NEGATIVE) Urine Bilirubin (NEGATIVE) Urine Urobilinogen (<2.0) EU/dL Ur Leukocyte Esterase (NEGATIVE) Urine RBC (0-2/HPF) Urine WBC (0-5/HPF) Ur Epithelial Cells (NONE-FEW) Urine Bacteria (NEGATIVE) 11/02/19 Range/Units 16:36 WBC (4.0-11.0) K/uL RBC (4.30-5.90) M/uL Hgb (12.0-16.0) g/dL Hct (36.0-46.0) % MCV (80.0-98.0) fL MCH (27.0-32.0) pg MCHC (31.0-37.0) g/dL RDW Std Deviation (28.0-62.0) fl RDW Coeff of Akin (11.0-15.0) % Plt Count (150-400) K/uL MPV (7.40-12.00) fL Neut % (Auto) (48.0-80.0) % Lymph % (Auto) (16.0-40.0) % Waldo % (Auto) (0.0-15.0) % Eos % (Auto) (0.0-7.0) % Baso % (Auto) (0.0-1.5) % Neut # (Auto) (1.4-5.7) K/uL Lymph # (Auto) (0.6-2.4) K/uL Waldo # (Auto) (0.0-0.8) K/uL Eos # (Auto) (0.0-0.7) K/uL Baso # (Auto) (0.0-0.1) K/uL Nucleated RBC % /100WBC Nucleated RBCs # K/uL Lactate (0.20-2.00) mmol/L Sodium (136-145) mmol/L Potassium (3.5-5.1) mmol/L Chloride (98-107) mmol/L Carbon Dioxide (21.0-32.0) mmol/L BUN (7.0-18.0) mg/dL Creatinine (0.6-1.0) mg/dL Est Cr Clr Drug Dosing Estimated GFR (MDRD) ml/min Glucose (74-106) mg/dL Calcium (8.5-10.1) mg/dL Total Bilirubin (0.2-1.0) mg/dL AST (15-37) IU/L ALT (14-63) IU/L Alkaline Phosphatase (46-116) U/L Total Protein (6.4-8.2) g/dL Albumin (3.4-5.0) g/dL Globulin (2.6-4.0) g/dL Albumin/Globulin Ratio (0.9-1.6) Lipase (73-393) U/L Urine Color YELLOW Urine Appearance CLEAR Urine pH 6.5 (5.0-8.0) Ur Specific Chester 1.020 (1.001-1.035) Urine Protein NEGATIVE (NEGATIVE) mg/dL Urine Glucose (UA) NEGATIVE (NEGATIVE) mg/dL Urine Ketones NEGATIVE (NEGATIVE) mg/dL Urine Occult Blood MODERATE H (NEGATIVE) Urine Nitrite NEGATIVE (NEGATIVE) Urine Bilirubin NEGATIVE (NEGATIVE) Urine Urobilinogen 1.0 (<2.0) EU/dL Ur Leukocyte Esterase NEGATIVE (NEGATIVE) Urine RBC 1-3 (0-2/HPF) Urine WBC 0-1 (0-5/HPF) Ur Epithelial Cells RARE (NONE-FEW) Urine Bacteria FEW (NEGATIVE) Meds: Medications Generic Name Dose Route Start Last Admin Trade Name Driss PRN Reason Stop Dose Admin Sodium Chloride 2.5 ml 11/02/19 15:32 Saline Flush FLUSH ASDIRECTED PRN Keep Vein Open Sodium Chloride 10 ml 11/02/19 15:32 Saline Flush FLUSH ASDIRECTED PRN Keep Vein Open Sodium Chloride 2.5 ml 11/02/19 15:32 Saline Flush FLUSH ASDIRECTED PRN Keep Vein Open Sodium Chloride 10 ml 11/02/19 16:23 Saline Flush FLUSH ASDIRECTED PRN Keep Vein Open Sodium Chloride 2.5 ml 11/02/19 16:23 Saline Flush FLUSH ASDIRECTED PRN Keep Vein Open Discontinued Medications Generic Name Dose Route Start Last Admin Trade Name Driss PRN Reason Stop Dose Admin Acetaminophen 1,000 mg 11/02/19 16:16 11/02/19 16:18 Tylenol Extra Strength PO 11/02/19 16:17 1,000 mg ONETIME ONE Administration Diatrizoate Meglum/Diatrizoate Sod 120 ml 11/02/19 16:48 11/02/19 17:34 Gastrografin 37% PO 11/02/19 16:49 120 ml ONETIME ONE Administration Hydromorphone HCl 1 mg 11/02/19 15:40 11/02/19 16:11 Dilaudid IVPUSH 11/02/19 15:41 1 mg ONETIME ONE Administration Sodium Chloride 1,000 mls @ 999 mls/hr 11/02/19 15:32 11/02/19 16:04 Normal Saline IV 11/02/19 16:32 999 mls/hr BOLUS ONE Administration Sodium Chloride 1,779 mls @ 999 mls/hr 11/02/19 16:31 11/02/19 17:30 Normal Saline IV 11/02/19 18:09 999 mls/hr NOW STA Administration Pantoprazole Sodium 40 mg/ 20 mls @ 420 mls/hr 11/02/19 16:48 11/02/19 17:32 Sodium Chloride IVPUSH 11/02/19 16:50 420 mls/hr ONETIME ONE Administration Ketorolac Tromethamine 30 mg 11/02/19 15:40 11/02/19 16:09 Toradol IVPUSH 11/02/19 15:41 30 mg ONETIME ONE Administration Ondansetron HCl 4 mg 11/02/19 15:32 11/02/19 16:06 Zofran IVPUSH 11/02/19 15:33 4 mg ONETIME ONE Administration - Re-Assessments/Exams Free Text/Narrative Re-Assessment/Exam: 11/02/19 15:59 Ordered IV fluids, Zofran, Toradol, Dilaudid 1 mg. 11/02/19 16:49 CT abdomen pelvis noncontrast did not reveal any signs of underlying pathology, will perform CT with PO Gastrografin to assess for gastric bypass complication. 11/02/19 18:44 Patient back from CAT scan, pain is down to 2/10. Free Text/Narrative Re-Assessment/Exam: 11/02/19 19:12 After treatments and a prolonged observation period in the ER, her fever and pain resolved. She is stable for discharge. I performed a repeat examination and the patient has not demonstrated any new abnormal findings. Patient exhibits normal vital signs and has exhibited a normal gait. I advised the patient to return to the ER for reevaluation if symptoms worsened, and to follow up with their PCP within 2-3 days. Departure - Departure Time of Disposition: 19:12 Disposition: Home, Self-Care 01 Condition: Good Clinical Impression: Ureteric colic, Kidney stone, Liver masses - Discharge Information *PRESCRIPTION DRUG MONITORING PROGRAM REVIEWED*: No *COPY OF PRESCRIPTION DRUG MONITORING REPORT IN PATIENT MARILYN: No Instructions: Kidney Stones, [id number], Dietary Guidelines to Help Prevent Kidney Stones Referrals: Toño Pérez MD [Physician] - Forms: ED Department Discharge Additional Instructions: The following information is given to patients seen in the emergency department who are being discharged to home. This information is to outline your options for follow-up care. We provide all patients seen in our emergency department with a follow-up referral. The need for follow-up, as well as the timing and circumstances, are variable depending upon the specifics of your emergency department visit. If you don't have a primary care physician on staff, we will provide you with a referral. We always advise you to contact your personal physician following an emergency department visit to inform them of the circumstance of the visit and for follow-up with them and/or the need for any referrals to a consulting specialist. The emergency department will also refer you to a specialist when appropriate. This referral assures that you have the opportunity for follow-up care with a specialist. All of these measure are taken in an effort to provide you with optimal care, which includes your follow-up. Under all circumstances we always encourage you to contact your private physician who remains a resource for coordinating your care. When calling for follow-up care, please make the office aware that this follow-up is from your recent emergency room visit. If for any reason you are refused follow-up, please contact the [facility] Emergency Department at and asked to speak to the emergency department charge nurse. Sepsis Event Note - Focused Exam Vital Signs: Vital Signs Temp Temp Pulse Resp BP Pulse Ox 11/02/19 18:45 97.8 F 80 17 110/61 94 L 11/02/19 17:30 81 18 123/77 95 11/02/19 16:48 98.9 F 11/02/19 16:18 101.2 F H 11/02/19 16:15 90 18 112/55 L 95 11/02/19 15:45 95 18 132/57 L 98 11/02/19 15:26 101.2 F H 94 19 132/57 L 97 Date Exam was Performed: 11/02/19 Time Exam was Performed: 19:10 - My Orders Last 24 Hours: My Active Orders 11/02/19 15:32 Sodium Chloride 0.9% [Saline Flush] 10 ml FLUSH ASDIRECTED PRN Sodium Chloride 0.9% [Saline Flush] 2.5 ml FLUSH ASDIRECTED PRN Sodium Chloride 0.9% [Saline Flush] 2.5 ml FLUSH ASDIRECTED PRN Saline Lock Insert [OM.PC] Stat 11/02/19 15:48 CULTURE BLOOD [BC] Stat 11/02/19 15:56 Blood Culture x2 Reflex Set [OM.PC] Stat Severe Sepsis Onset Time [OM.PC] Stat 11/02/19 16:23 CULTURE BLOOD [BC] Stat Sodium Chloride 0.9% [Saline Flush] 10 ml FLUSH ASDIRECTED PRN Sodium Chloride 0.9% [Saline Flush] 2.5 ml FLUSH ASDIRECTED PRN 11/02/19 16:29 Saline Lock Insert [OM.PC] Stat Severe Sepsis Onset Time [OM.PC] Stat - Assessment/Plan Last 24 Hours: My Active Orders 11/02/19 15:32 Sodium Chloride 0.9% [Saline Flush] 10 ml FLUSH ASDIRECTED PRN Sodium Chloride 0.9% [Saline Flush] 2.5 ml FLUSH ASDIRECTED PRN Sodium Chloride 0.9% [Saline Flush] 2.5 ml FLUSH ASDIRECTED PRN Saline Lock Insert [OM.PC] Stat 11/02/19 15:48 CULTURE BLOOD [BC] Stat 11/02/19 15:56 Blood Culture x2 Reflex Set [OM.PC] Stat Severe Sepsis Onset Time [OM.PC] Stat 11/02/19 16:23 CULTURE BLOOD [BC] Stat Sodium Chloride 0.9% [Saline Flush] 10 ml FLUSH ASDIRECTED PRN Sodium Chloride 0.9% [Saline Flush] 2.5 ml FLUSH ASDIRECTED PRN 11/02/19 16:29 Saline Lock Insert [OM.PC] Stat Severe Sepsis Onset Time [OM.PC] Stat
[2019-11-02] MEDS ORDERED: Acetaminophen 500 MG Tab PO ONE (16:16)
--- NOTE | 2019-11-02 16:19 | CT ---
CT abdomen and pelvis Technique: Multiple axial sections were obtained from above the dome of the diaphragm inferiorly through the pubic symphysis. Intravenous and oral contrast not utilized. Comparison: Prior CT abdomen and pelvis study of 03/02/19. Findings: 2 low density lesions seen within the liver believed to be stable from prior CT exam. Fatty lesion is also noted within the liver believed to be stable from previous exam. Liver contains no focal parenchymal abnormality. Adrenal glands show no nodule. Prior gastric surgery is seen. Surgical clips seen from prior cholecystectomy. Nonobstructing calculi are seen within the kidneys. No ureteral dilatation or ureteral stone is seen. Pancreas appears within normal limits. Aorta shows no aneurysm. No retroperitoneal adenopathy or mesenteric abnormalities are seen. No pelvic mass or adenopathy is seen. No free fluid or inflammatory change is appreciated. Appendix is not seen with certainty. Bone window settings were reviewed which shows mild degenerative change within the spine. No acute osseous finding is appreciated. Impression: 1. Findings as noted above. 2. Nothing acute is seen. No etiology is seen for the patient's abdominal pain. Diagnostic code #2 This report was dictated in MDT
[2019-11-02 16:26] LABS: BLOOD UREA NITROGEN,BUN 8 mg/dL (7.0-18.0); CARBON DIOXIDE,CO2 26.7 mmol/L (21.0-32.0); CHLORIDE,CL 103 mmol/L (98-107); GLUCOSE RANDOM 136 mg/dL (74-106); LIPASE 67 U/L (73-393); POTASSIUM,K 4.2 mmol/L (3.5-5.1); SODIUM,NA 139 mmol/L (136-145)
[2019-11-02] MEDS ORDERED: Pantoprazole 40 MG in Sodium Chloride 0.9% 20 ML IVPUSH ONE (16:48)
[2019-11-02] MEDS ORDERED: Diatrizoate Meglumine/Diatrizoate Sodium 37% 120 ML Bottle PO ONE (16:48)
[2019-11-02 18:56] VITALS: BP 110/61; PULSE 80
--- NOTE | 2019-11-02 18:59 | CT ---
INDICATION: Left upper quadrant pain TECHNIQUE: CT Abdomen and pelvis without i.v. contrast. Coronal and sagittal reformats were obtained. Oral contrast was administered for the examination. COMPARISON: 11/02/2019 FINDINGS: Lower chest: Unremarkable. 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 A mildly hypodense masses present within the left medial segment of the liver measuring 7.2 x 5 cm, previously reported as representing a hemangioma. Spleen: Unremarkable. Pancreas: Unremarkable. Gallbladder: Previous cholecystectomy noted without significant intra- or extrahepatic biliary ductal dilatation seen. Kidney: There is a 4 mm stone present lower pole of the right kidney. A 2 mm stone is seen in the left renal lower pole. Adrenal: Unremarkable. Bowel: Previous retrogastric-retrocolic gastric bypass noted with no definite obstruction of the biliopancreatic limb or Jes[place]-en-Y loop seen. The appendix is normal in appearance and size. A stable fat containing periumbilical hernia is noted. Vascular: Unremarkable. Lymph: Unremarkable. Peritoneum: Unremarkable. No pneumoperitoneum is seen. No significant ascites is noted. Pelvis: The patient is status post prior hysterectomy. Soft tissue: Unremarkable. Bone: A small stable bone island is present in the L3 vertebral body. IMPRESSION: 1. Unremarkable with no CT correlate for the patient`s symptoms seen. Dictated by Marcelo Isbell MD @ 11/02/2019 6:58:44 PM Please note that all CT scans at this facility use dose modulation, iterative reconstruction, and/or weight-based dosing when appropriate to reduce radiation dose to as low as reasonably achievable. Dictated by: Marcelo Isbell MD @ 11/02/2019 18:58:47 (Electronically Signed)
== END 2019-11-02 19:27 | disposition home or self-care (01) ==
LOC: MW.ED 15:23
DX: N20.2 Calculus of kidney with calculus of ureter (principal); R16.0 Hepatomegaly, not elsewhere classified; Z88.5 Allergy status to narcotic agent; E66.9 Obesity, unspecified; Z68.39 Body mass index [BMI] 39.0-39.9, adult
CPT/HCPCS: 36415; 74176; 80053; 81001; 83605; 83690; 85025; 87040; 96374; 96375; 99284; A9270; C9113; J1170; J1885; J2405; J7030; Q9963; 99283

== ENCOUNTER 2021-08-06 08:53 | Day surgery (SDC) | payer OTHER ==
[2021-08-06] MEDS ORDERED: Lactated Ringers 1,000 ML IV SCH ×2 (09:45)
[2021-08-06] MEDS ORDERED: ceFAZolin 2 GM in Premix Bag 1 BAG IV SCH (09:45)
[2021-08-06] MEDS ORDERED: Bupivacaine 25%/EPINEPHrine/PF 0 ML ONE (10:47)
[2021-08-06] MEDS ORDERED: Bupivacaine 0.25% 10 ML SDV ONE (10:51)
[2021-08-06] MEDS ORDERED: Bupivacaine 0.5% 10 ML SDV ONE (10:51)
[2021-08-06] MEDS ORDERED: Lidocaine 1% 20 ML MDV ONE (10:52)
[2021-08-06 16:13] VITALS: BP 142/66; PULSE 60
== END 2021-08-06 12:00 | disposition home or self-care (01) ==
LOC: MW.SDS 08:53
PROVIDERS: ATTEND Orthopaedic Surgery
DX: D17.22 Benign lipomatous neoplasm of skin and subcutaneous tissue of left arm (principal); E66.01 Morbid (severe) obesity due to excess calories; Z98.84 Bariatric surgery status; Z88.5 Allergy status to narcotic agent; Z68.41 Body mass index [BMI] 40.0-44.9, adult; Z87.891 Personal history of nicotine dependence; Z79.899 Other long term (current) drug therapy
CPT/HCPCS: 26160; J0690; J7120; J3490

== ENCOUNTER 2022-05-31 00:28 | Emergency (ER) | payer OTHER ==
[2022-05-31] MEDS ORDERED: Sodium Chloride 0.9% 1,000 ML IV ONE (03:12)
[2022-05-31] MEDS ORDERED: Ketorolac 30 MG/ML SDV IVPUSH ONE (03:12)
[2022-05-31 03:50] LABS: CARBON DIOXIDE,CO2 26.5 mmol/L (21.0-32.0)
[2022-05-31 04:52] LABS: CARBON DIOXIDE,CO2 24.7 mmol/L (21.0-32.0)
[2022-05-31 05:29] VITALS: BP 130/70; PULSE 72
== END 2022-05-31 05:20 | disposition home or self-care (01) ==
LOC: MW.ED 00:28
DX: N20.0 Calculus of kidney (principal); E66.9 Obesity, unspecified; Z68.38 Body mass index [BMI] 38.0-38.9, adult; Z88.8 Allergy status to other drugs, medicaments and biological substances; Z90.49 Acquired absence of other specified parts of digestive tract
CPT/HCPCS: 36415; 74176; 80048; 80053; 81001; 83690; 85025; 87086; 96361; 96374; 99284; J1885; J7030

== ENCOUNTER 2024-01-28 15:40 | Emergency (ER) | payer BC ==
[2024-01-28] MEDS ORDERED: Sodium Chloride 0.9% 10 ML Syringe FLUSH PRN (16:20)
[2024-01-28] MEDS ORDERED: Sodium Chloride 0.9% 2.5 ML Syringe FLUSH PRN (16:20)
[2024-01-28] MEDS ORDERED: Sodium Chloride 0.9% 20 ML SDV IV PRN (16:20)
[2024-01-28 16:45] LABS: BASOPHILS ABSOLUTE AUTO 0.03 K/uL (0.00-0.20); BASOPHILS PERCENT AUTO 0.3 % (0.0-1.0); EOSINOPHILS ABSOLUTE AUTO 0.03 K/uL (0.00-0.45); EOSINOPHILS PERCENT AUTO 0.3 % (0.0-6.0); HEMATOCRIT 40.1 % (37.0-47.0); HEMOGLOBIN 13.4 g/dL (12.0-16.0); IMMATURE GRAN ABSOLUTE AUTO 0.03 K/uL (0.00-0.05); IMMATURE GRAN PERCENT AUTO 0.3 % (0.0-0.4); LYMPHOCYTES ABSOLUTE AUTO 1.14 K/uL (1.00-4.80); LYMPHOCYTES PERCENT AUTO 11.5 % (24.0-44.0); MEAN CORPUSCULAR HEMOGLOBIN 27.7 pg (28.0-32.0); MEAN CORPUSCULAR HGB CONC 33.4 g/dL (32.0-36.0); MEAN CORPUSCULAR VOLUME 82.9 fL (83.0-99.0); MEAN PLATELET VOLUME 9.4 fL (9.4-12.3); MONOCYTES ABSOLUTE AUTO 0.53 K/uL (0.00-0.80); MONOCYTES PERCENT AUTO 5.4 % (0.0-8.0); NEUTROPHILS ABSOLUTE AUTO 8.14 K/uL (1.80-7.70); NEUTROPHILS PERCENT AUTO 82.2 % (41.0-71.0); PLATELET COUNT,PLT 211 K/uL (150-400); RED BLOOD CELL COUNT 4.84 M/uL (4.10-5.30)
[2024-01-28 16:46] LABS: BILIRUBIN,URINE NEGATIVE (NEGATIVE); COLOR,URINE YELLOW; GLUCOSE,URINE NEGATIVE (NEGATIVE); KETONES,URINE 40 mg/dL (NEGATIVE); LEUKOCYTE ESTERASE,URINE MODERATE (NEGATIVE); NITRITE,URINE POSITIVE (NEGATIVE); OCCULT BLOOD,URINE LARGE (NEGATIVE); PROTEIN,URINE NEGATIVE (NEGATIVE); UROBILINOGEN,URINE 0.2 EU/dL (<2.0)
[2024-01-28 16:58] LABS: APPEARANCE,URINE HAZY
[2024-01-28] MEDS: cefTRIAXone 2 GM in Sodium Chloride 0.9% 50 ML IV ONE (17:00)
[2024-01-28] MEDS: Sodium Chloride 0.9% 1,000 ML IV ONE (17:00)
[2024-01-28] MEDS: Ondansetron 4 MG/2 ML SDV IVPUSH ONE (17:02)
[2024-01-28] MEDS: Ketorolac 30 MG/ML SDV IVPUSH ONE (17:02)
[2024-01-28] MEDS: HYDROmorphone 0.5 MG/0.5 ML Syringe IVPUSH ONE (17:03)
[2024-01-28] MEDS: Acetaminophen 500 MG Tab PO ONE (17:04)
[2024-01-28 17:06] LABS: BACTERIA,URINE 3+ (NEGATIVE); EPITHELIAL CELLS,URINE RARE (NONE-FEW); RBC,URINE 15-20 (0-2/HPF)
[2024-01-28 17:14] LABS: A/G RATIO 1.3 (0.9-1.6); ALBUMIN 3.9 g/dL (3.4-5.0); BILIRUBIN TOTAL 0.4 mg/dL (0.2-1.0); CARBON DIOXIDE,CO2 25.3 mmol/L (21.0-32.0); CREATININE 0.8 mg/dL (0.6-1.0); EST CRCL DRUG DOSING (CG) 67.29 mL/min; POTASSIUM,K 3.7 mmol/L (3.5-5.1)
[2024-01-28] MEDS: Tamsulosin 0.4 MG Cap.ER PO ONE (18:48)
[2024-01-28] MEDS: oxyCODONE 5 MG Tab PO ONE (18:48)
[2024-01-28 22:59] VITALS: BP 122/71; PULSE 87
== END 2024-01-28 18:54 | disposition home or self-care (01) ==
LOC: MW.ED 15:40
DX: N13.2 Hydronephrosis with renal and ureteral calculous obstruction (principal); N30.01 Acute cystitis with hematuria; R10.9 Unspecified abdominal pain; E66.9 Obesity, unspecified; Z87.442 Personal history of urinary calculi; Z79.899 Other long term (current) drug therapy; Z88.8 Allergy status to other drugs, medicaments and biological substances; Z75.8 Other problems related to medical facilities and other health care
CPT/HCPCS: 36415; 80053; 81001; 83605; 83690; 85025; 87040; 96365; 96375; 99284; A9270; J0696; J1170; J1885; J2405; J3490; J7030; 99285

== ENCOUNTER 2024-01-28 23:10 | Emergency (ER) | payer BC ==
[2024-01-28 23:46] LABS: BASOPHILS ABSOLUTE AUTO 0.02 K/uL (0.00-0.20); BASOPHILS PERCENT AUTO 0.2 % (0.0-1.0); HEMATOCRIT 40.2 % (37.0-47.0); HEMOGLOBIN 13.4 g/dL (12.0-16.0); IMMATURE GRAN ABSOLUTE AUTO 0.02 K/uL (0.00-0.05); IMMATURE GRAN PERCENT AUTO 0.2 % (0.0-0.4); LYMPHOCYTES ABSOLUTE AUTO 0.37 K/uL (1.00-4.80); LYMPHOCYTES PERCENT AUTO 4.2 % (24.0-44.0); MEAN CORPUSCULAR HEMOGLOBIN 27.9 pg (28.0-32.0); MEAN CORPUSCULAR HGB CONC 33.3 g/dL (32.0-36.0); MEAN CORPUSCULAR VOLUME 83.8 fL (83.0-99.0); MEAN PLATELET VOLUME 9.3 fL (9.4-12.3); MONOCYTES ABSOLUTE AUTO 0.13 K/uL (0.00-0.80); MONOCYTES PERCENT AUTO 1.5 % (0.0-8.0); NEUTROPHILS ABSOLUTE AUTO 8.29 K/uL (1.80-7.70); NEUTROPHILS PERCENT AUTO 93.9 % (41.0-71.0); PLATELET COUNT,PLT 159 K/uL (150-400); WHITE BLOOD CELL COUNT,WBC 8.83 K/uL (3.9-11.3)
[2024-01-28] MEDS: Morphine 4 MG/ML Syringe IVPUSH ONE (23:46)
[2024-01-28] MEDS: Sodium Chloride 0.9% 1,000 ML IV STA (23:46)
[2024-01-28] MEDS: Acetaminophen 325 MG Tab PO ONE (23:52)
[2024-01-29 00:10] LABS: A/G RATIO 1.2 (0.9-1.6); ALBUMIN 3.7 g/dL (3.4-5.0); BILIRUBIN TOTAL 0.4 mg/dL (0.2-1.0); CALCIUM 8.7 mg/dL (8.5-10.1); CARBON DIOXIDE,CO2 23.9 mmol/L (21.0-32.0); POTASSIUM,K 3.9 mmol/L (3.5-5.1); PROTEIN TOTAL,TP 6.9 g/dL (6.4-8.2)
[2024-01-29 00:23] LABS: LACTIC ACID 2.7 mmol/L (0.4-2.0)
[2024-01-29] MEDS: Sodium Chloride 0.9% 1,000 ML IV STA (01:16)
[2024-01-29] MEDS: Morphine 4 MG/ML Syringe IVPUSH ONE (02:13)
[2024-01-29] MEDS: Ondansetron 4 MG/2 ML SDV IVPUSH ONE (02:14)
[2024-01-29 03:43] VITALS: BP 132/72; PULSE 68
== END 2024-01-29 03:43 ==
LOC: MW.ED 23:10
DX: A41.9 Sepsis, unspecified organism (principal); N39.0 Urinary tract infection, site not specified; N20.0 Calculus of kidney; Z75.8 Other problems related to medical facilities and other health care; E66.9 Obesity, unspecified; Z90.49 Acquired absence of other specified parts of digestive tract; Z90.710 Acquired absence of both cervix and uterus; Z79.899 Other long term (current) drug therapy; Z88.8 Allergy status to other drugs, medicaments and biological substances; Z68.41 Body mass index [BMI] 40.0-44.9, adult
CPT/HCPCS: 36415; 80053; 83605; 85025; 96361; 96374; 96375; 96376; 99285; A9270; J2270; J2405; J7030; 99284